=== PATIENT | female | born 1955 | race Two or more races ===

== ENCOUNTER 2025-11-20 00:57 | Inpatient (IN) | payer OTHER, MEDICAID ==
[~2025-11-20] VITALS: Ht 154.9 cm; Wt 49.7 kg
--- NOTE | 2025-11-20 01:40 | ED.PDOC ---
General HPI Comments 70-year-old female, with a history of recurrent kidney stones, presents to the ED with a chief complaint of right flank pain x2 days. Patient reports this pain is similar to her previous kidney stone pain. Patient states the pain is constant, sharp, with no associated relieving factors. Patient reports having a ureteral stent and laser lithotripsy done for kidney stones in the past. Patient has no further complaints at this time and otherwise denies symptoms of dizziness, weakness, dysuria, hematuria, nausea, vomiting. Chief Complaint: Abdominal Pain Time Seen by MD: :33 Reviewed notes: Medications, Allergies Allergies: Coded Allergies: NO KNOWN ALLERGIES (Unverified , 11/20/25) Information Source: Patient, Emergency Med Personnel Mode of Arrival: EMS Severity: Moderate Timing: Days Duration: Since onset associated signs and symptoms: Flank Pain Past Medical History PAST MEDICAL HISTORY: Asthma, Cancer, Kidney Stones Surgical History: Denies all surgeries Social History Smoker: Non-Smoker Alcohol: Denies ETOH Use Drugs: Denies Drug Use Lives In: Home Constitutional: denies: chills, diaphoresis, fatigue, fever, malaise, sweats, weakness, others EENTM: denies: blurred vision, double vision, ear bleeding, ear discharge, ear drainage, ear pain, ear ringing, eye pain, eye redness, hearing loss, mouth pain, mouth swelling, nasal discharge, nose bleeding, nose congestion, nose pain, photophobia, tearing, throat pain, throat swelling, voice changes, others Respiratory: denies: cough, hemoptysis, orthopnea, SOB at rest, shortness of breath, SOB with excertion, stridor, wheezing, others Cardiovascular: denies: chest pain, dizzy spells, diaphoresis, Dyspnea on exertion, edema, irregular heart beat, left arm pain, lightheadedness, palpitations, PND, syncope, others Gastrointestinal: denies: abdomen distended, abdominal pain, blood streaked bowels, constipated, diarrhea, dysphagia, difficulty swallowing, hematemesis, melena, nausea, poor appetite, poor fluid intake, rectal bleeding, rectal pain, vomiting, others Genitourinary: reports: flank pain; denies: abnormal vagina bleeding, burning, dyspareunia, dysuria, frequency, hematuria, incontinence, pain, , vagina discharge, urgency, others Neurological: denies: dizziness, fainting, headache, left sided numbness, left sided weakness, numbness, paresthesia, pre-existing deficit, right sided numbness, right sided weakness, seizure, speech problems, tingling, tremors, weakness, others Musculoskeletal: denies: back pain, gout, joint pain, joint swelling, muscle pain, muscle stiffness, neck pain, others Integumetry: denies: bruises, change in color, change in hair/nails, dryness, laceration, lesions, lumps, rash, wounds, others Allergic/Immunocompromised: denies: Difficulty Healing, Frequent Infections, Hives, Itching, others Hematologic/Lymphatic: denies: anemia, blood clots, easy bleeding, easy bruising, swollen glands, others Endocrine: denies: excessive hunger, excessive sweating, excessive thirst, excessive urination, flushing, intolerance to cold, intolerance to heat, unexplained weight gain, unexplained weight loss, others Psychiatric: denies: anxiety, bipolar disorder, depression, hopeless, panic disorder, schizophrenia, sleepless, suicidal, others All Other Systems: Reviewed and Negative Physical Exam General Appearance: Moderate Distress, Thin HEENT: Normal ENT Inspection, Pharynx Normal, TMs Normal Neck: Full Range of Motion, Non-Tender, Normal, Normal Inspection Respiratory: Chest Non-Tender, Lungs Clear, No Accessory Muscle Use, No Respiratory Distress, Normal Breath Sounds Cardiovascular: No Edema, No JVD, No Murmur, No Gallop, Normal Peripheral Pulses, Regular Rate/Rhythm Breast Exam: Deferred Gastrointestinal: No Organomegaly, Non Tender, No Pulsatile Mass, Normal Bowel Sounds, Soft Genitalia: Deferred Pelvic: Deferred Rectal: Deferred Extremities: No calf tenderness, Normal capillary refill, Normal inspection, Normal range of motion, Non-tender, No pedal edema Musculoskeletal : Apperance: Normal Neurologic: Alert, 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 Was a procedure done?: No Differential Diagnosis Kidney stone (Female): Urolithiasis X-Ray, Labs, Meds, VS Vital Signs Date Time Temp Pulse Resp B/P (MAP) Pulse Ox O2 Delivery O2 Flow Rate FiO2 12/24/25 04:26 74 14 126/63 12/24/25 02:11 96 Room Air* 0 21 11/20/25 02:11 98.1 81 16 143/79 (100) 96 98.1 11/20/25 02:03 81 16 143/79 11/20/25 01:02 98.6 91 18 138/78 100 98.6 Lab Test 11/20/25 01:56 Range/Units White Blood Count 8.2 4.4-10.8 10^3/uL Red Blood Count 3.64 L 4.0-5.20 10^6/uL Hemoglobin 10.8 L 12.2-16.2 g/dL Hematocrit 32.9 L 36.0-46.0 % Mean Corpuscular Volume 90.5 80.0-100.0 fL Mean Corpuscular Hemoglobin 29.6 28.0-32.0 pg Mean Corpuscular Hemoglobin Concent 32.7 32.0-36.0 g/dL Red Cell Distribution Width 14.3 11.8-14.3 % Platelet Count 196 140-450 10^3/uL Mean Platelet Volume 6.8 L 6.9-10.8 fL Neutrophils (%) (Auto) 81.3 H 37.0-80.0 % Lymphocytes (%) (Auto) 11.4 10.0-50.0 % Monocytes (%) (Auto) 6.5 0.0-12.0 % Eosinophils (%) (Auto) 0.4 0.0-7.0 % Basophils (%) (Auto) 0.4 0.0-2.0 % Neutrophils # (Auto) 6.7 1.6-8.6 10 ^3/uL Lymphocytes # (Auto) 0.9 0.4-5.4 10 ^3/uL Monocytes # (Auto) 0.5 0-1.3 10 ^3/uL Eosinophils # (Auto) 0 0-0.8 10 ^3/uL Basophils # (Auto) 0 0-0.2 10 ^3/uL Nucleated Red Blood Cells 0.0 % Sodium Level 139 136-145 mmol/L Potassium Level 4.1 3.5-5.1 mmol/L Chloride Level 105 98-107 mmol/L Carbon Dioxide Level 25 20-31 mmol/L Anion Gap 9 5-15 Blood Urea Nitrogen 15 9-23 mg/dL Creatinine 0.95 0.550-1.02 mg/dL Glomerular Filtration Rate Calc 64 >90 mL/min BUN/Creatinine Ratio 15.8 10.0-20.0 Serum Glucose 111 H 74-106 mg/dL Calcium Level 9.0 8.7-10.4 mg/dL Lipase 31 12-53 U/L Current Medications Medications (Trade) Dose Ordered Sig/Chidi Route Start Time Stop Time Status Last Admin Morphine Sulfate 4 mg ONCE ONCE IV 11/20/25 01:45 11/20/25 01:46 DC 11/20/25 02:03 Ondansetron HCl (Zofran) 4 mg ONCE ONCE IV 11/20/25 01:45 11/20/25 01:46 DC 11/20/25 01:57 [place] [address] Ph: [phone] DIAGNOSTIC IMAGING Diagnostic Imaging Report : [id number] Signed PATIENT: ISA VELEZ ACCT: [id number] UNIT: [id number] : 1955 LOC: ER ROOM / BED: / AGE / SEX: 70 / F ADM STATUS: REG ER SERVICE [id number] ORDERING PHYSICIAN: MANUEL DAUGHERTY PROCEDURE(s): ABPL - CT AB PEL WO CON-NO ORAL OR IV REASON: Rt flank pain ORDER NUMBER(s): [id number], ACCESSION NUMBER(s): [id number] EXAM: CT CT AB PEL WO CON-NO ORAL OR IV History: Rt flank pain Comparison Study: None TECHNIQUE: Multidetector spiral CT of the abdomen was performed from lung bases to pubic symphysis. Imaging was performed without IV contrast. Axial, coronal and sagittal multiplanar reformats were obtained from the axial data set by the technologist. Radiation Dose : 1. Abdomen/Pelvis: CTDIvol 5.1 mGy, DLP 271.69 mGy*cm. FINDINGS: Evaluation of solid organs is limited due to lack of intravenous contrast use. Lung Bases: No acute or significant lung base finding. Mild bibasilar atelectasis. Normal heart size. No pleural or pericardial effusion. Liver: The liver is normal in size. 1.6 cm left hepatic lobe cyst. No focal lesions. Gallbladder and Biliary Tree: Unremarkable Spleen: Unremarkable Pancreas: The pancreas is grossly normal in appearance. Adrenal Glands: Unremarkable Kidneys: Chronic appearing Moderate bilateral hydronephrosis likely related to mechanical obstruction secondary to retroperitoneal masses. Nonobstructing right pelvocaliceal calculi measure up to 3 mm in diameter. 2.3 cm left superior pole renal cortical cyst. Bladder: Grossly unremarkable for degree of distention. Bowel: The stomach is grossly normal in appearance. Retained colorectal stool. Diverticulosis coli without CT evidence of acute diverticulitis. Small bowel and colon are otherwise normal in caliber and distribution. The appendix is normal. Ascites: Absent Lymphadenopathy: Multiple abnormally enlarged mesenteric and retroperitoneal lymph nodes poorly delineated in the absence of intravenous contrast with at least 2 focal estella conglomerate including a right aortocaval mass measuring 5.2 x 4.8 cm and a left common iliac estella conglomerate measuring up to 8.0 x 5.0 cm. Abdominal Wall and Mesentery: Unremarkable. Vasculature: The visualized abdominal aorta is normal in size and caliber. Atherosclerotic vascular calcifications. Evaluation of abdominal and pelvic vessels is limited due to lack of intravenous contrast. Pelvic Organs: Unremarkable status post hysterectomy. Musculoskeletal: No aggressive focal bony lesions, acute fractures or dislocation. IMPRESSION: 1. Mesenteric and retroperitoneal lymphadenopathy with at least 2 focal estella conglomerates as described. Findings are concerning for lymphoma or metastatic disease. 2. Chronic appearing moderate bilateral hydronephrosis likely related to mechanical obstruction secondary to retroperitoneal masses. 3. Nonobstructing right nephrolithiasis. 4. Diverticulosis coli without CT evidence of acute diverticulitis. 5. Retained colorectal stool. Radiation optimization: All CT scans at this facility use at least one of these dose optimization techniques: automated exposure control mA and/or kV adjustment per patient size (includes targeted exams where dose is matched to clinical indication) or iterative reconstruction. Time of 1ST Reevaluation: 02:13 Reevaluation 1ST: Unchanged Patient Education/Counseling: Diagnosis, Treatment, Need For Follow Up Family Education/Counseling: No Family Present SEPSIS Sepsis Screen Date sepsis recognized/suspect: Nov 20, 2025 Time Sepsis recognized/suspect: 0107 Recent Procedure: No On Antibiotic Therapy: No Respiratory Rate >20: No Heart Rate >90: Yes Temp<36 C (96.8 F) or >38.3 C: No SBP <90 or MAP <65 mmHG: No New Acute Mental Status Change: No Is the patient on CPAP, BIPAP,: No Physician Orders Ct Ab Pel Wo Con-No Oral Or Iv (11/20/25 01:41) Urinalysis (11/20/25 01:41) Vital Signs Date Time Temp Pulse Resp B/P (MAP) Pulse Ox O2 Delivery O2 Flow Rate FiO2 11/20/25 04:26 74 14 126/63 11/20/25 02:11 96 Room Air* 0 21 11/20/25 02:11 98.1 81 16 143/79 (100) 96 98.1 11/20/25 02:03 81 16 143/79 11/20/25 01:02 98.6 91 18 138/78 100 98.6 Laboratory Tests Test 11/20/25 01:56 White Blood Count 8.2 10^3/uL (4.4-10.8) Medications Medications Dose Ordered Sig/Chidi Route Start Time Stop Time Status Last Admin Dose Admin Morphine Sulfate 4 mg ONCE ONCE IV 11/20/25 01:45 11/20/25 01:46 DC 11/20/25 02:03 Ondansetron HCl 4 mg ONCE ONCE IV 11/20/25 01:45 11/20/25 01:46 DC 11/20/25 01:57 Critical Care Note Critical Care Time?: No Stability Stability form required: No Heart Score Heart Score: Heart Score Response (Comments) Value History N/A 0 EKG N/A 0 Age N/A 0 Risk Factors N/A 0 Troponin N/A 0 Total 0 I personally scribed for MANUEL DAUGHERTYP ([email or web address]) on 11/20/25 at 01:40. Electronically submitted by Venecia Connell ([employer]). I personally scribed for MANUEL DAUGHERTYP ([email or web address]) on 11/20/25 at 04:53. Electronically submitted by Venecia Connell ([employer]). MANUEL DAUGHERTY Nov 20, 2025 01:40
[2025-11-20] MEDS: ONDANSETRON HCL 4 MG/2 ML VIAL IV ONE ×2 (01:57→16:19)
[2025-11-20] MEDS: MORPHINE SULFATE 4 MG/ML SYR/VIAL IV ONE ×2 (02:03→13:11)
[2025-11-20 02:06] LABS: Hematocrit 32.9 % (36.0-46.0); Hemoglobin 10.8 g/dL (12.2-16.2); Mean Corpuscular Hemoglobin 29.6 pg (28.0-32.0); Mean Corpuscular Volume 90.5 fL (80.0-100.0); Nucleated Red Blood Cells % 0.0 %
[2025-11-20 02:11] VITALS: O2SAT 96
[2025-11-20 02:15] LABS: Calcium 9.0 mg/dL (8.7-10.4); Chloride 105 mmol/L (98-107); Potassium 4.1 mmol/L (3.5-5.1); Sodium 139 mmol/L (136-145)
[2025-11-20 02:16] LABS: Anion Gap 9 (5-15); Carbon Dioxide 25 mmol/L (20-31)
[2025-11-20 02:21] LABS: BUN/Creatinine Ratio 15.8 (10.0-20.0); Blood Urea Nitrogen 15 mg/dL (9-23)
[2025-11-20 02:22] LABS: Glucose 111 mg/dL (74-106); Lipase 31 U/L (12-53)
--- NOTE | 2025-11-20 03:38 | DVH ---
EXAM: CT CT AB PEL WO CON-NO ORAL OR IV History: Rt flank pain Comparison Study: None TECHNIQUE: Multidetector spiral CT of the abdomen was performed from lung bases to pubic symphysis. Imaging was performed without IV contrast. Axial, coronal and sagittal multiplanar reformats were obtained from the axial data set by the technologist. Radiation Dose : 1. Abdomen/Pelvis: CTDIvol 5.1 mGy, DLP 271.69 mGy*cm. FINDINGS: Evaluation of solid organs is limited due to lack of intravenous contrast use. Lung Bases: No acute or significant lung base finding. Mild bibasilar atelectasis. Normal heart size. No pleural or pericardial effusion. Liver: The liver is normal in size. 1.6 cm left hepatic lobe cyst. No focal lesions. Gallbladder and Biliary Tree: Unremarkable Spleen: Unremarkable Pancreas: The pancreas is grossly normal in appearance. Adrenal Glands: Unremarkable Kidneys: Chronic appearing Moderate bilateral hydronephrosis likely related to mechanical obstruction secondary to retroperitoneal masses. Nonobstructing right pelvocaliceal calculi measure up to 3 mm in diameter. 2.3 cm left superior pole renal cortical cyst. Bladder: Grossly unremarkable for degree of distention. Bowel: The stomach is grossly normal in appearance. Retained colorectal stool. Diverticulosis coli without CT evidence of acute diverticulitis. Small bowel and colon are otherwise normal in caliber and distribution. The appendix is normal. Ascites: Absent Lymphadenopathy: Multiple abnormally enlarged mesenteric and retroperitoneal lymph nodes poorly delineated in the absence of intravenous contrast with at least 2 focal estella conglomerate including a right aortocaval mass measuring 5.2 x 4.8 cm and a left common iliac estella conglomerate measuring up to 8.0 x 5.0 cm. Abdominal Wall and Mesentery: Unremarkable. Vasculature: The visualized abdominal aorta is normal in size and caliber. Atherosclerotic vascular calcifications. Evaluation of abdominal and pelvic vessels is limited due to lack of intravenous contrast. Pelvic Organs: Unremarkable status post hysterectomy. Musculoskeletal: No aggressive focal bony lesions, acute fractures or dislocation. IMPRESSION: 1. Mesenteric and retroperitoneal lymphadenopathy with at least 2 focal estella conglomerates as described. Findings are concerning for lymphoma or metastatic disease. 2. Chronic appearing moderate bilateral hydronephrosis likely related to mechanical obstruction secondary to retroperitoneal masses. 3. Nonobstructing right nephrolithiasis. 4. Diverticulosis coli without CT evidence of acute diverticulitis. 5. Retained colorectal stool. Radiation optimization: All CT scans at this facility use at least one of these dose optimization techniques: automated exposure control mA and/or kV adjustment per patient size (includes targeted exams where dose is matched to clinical indication) or iterative reconstruction.
[2025-11-20 05:53] LABS: Urine Protein, UAD TRACE (Negative)
[2025-11-20] MEDS: KETOROLAC TROMETH 30 MG/ML 1ML VIAL IV ONE (06:35)
[2025-11-20 08:15] VITALS: PULSE 73; RESP 18; O2SAT 95
[2025-11-20 13:40] VITALS: PULSE 19; RESP 19; O2SAT 94
[2025-11-20] MEDS ORDERED: MORPHINE SULFATE 4 MG/ML SYR/VIAL IV PRN (17:45)
[2025-11-20] MEDS ORDERED: ACETAMINOPHEN 325 MG TAB PO PRN (17:45)
[2025-11-20] MEDS ORDERED: NITROGLYCERIN 0.4 MG SL TAB SL PRN (17:45)
--- NOTE | 2025-11-20 17:49 | DVHHPRES ---
History of Present Illness Resident Creating Document: PETEJOVANNY FITZGERALD RESIDENT History of Present Illness Dorys is a 70 Y O F presents with right flank pain for 2 days that she describes as feeling like a relapse of kidney stones. The pain has been progressively worsening associated nausea and vomiting, stating that every time she tries to eat, she throws it up. She also describes feeling fullness in the affected area and reports some unspecified weight loss. Dorys has a significant oncologic history, having been diagnosed with ovarian cancer in 2019 and undergoing surgery. She required a second surgery in 2020 to "finish it off." She mentions that tumors were found underneath her left rib and on her right side that were not initially detected. Due to insurance changes, she has had to find new doctors and is currently working to establish care with a primary doctor who can refer her to oncology. She states she has not been following up with an oncologist recently due to these transitions in care. Medical History - Cancer diagnosed in 2019 - History of chemotherapy treatment with poor tolerance and significant weight loss - Asthma, Surgical History - Cancer surgery in 2019 - Follow-up cancer surgery in 2019 to complete the initial procedure Medications and Supplements - Chemotherapy - Previously received for cancer treatment. Discontinued due to poor tolerance and significant adverse effects including weight loss. Social History - Living Situation: Lives with son and baby girl - Family Structure: Has a son and granddaughter Review of Systems General: Positive for weight loss, decreased appetite. Gastrointestinal: Positive for nausea and vomiting, abdominal fullness. Review of Systems Allergies: Coded Allergies: NO KNOWN ALLERGIES (Unverified , 11/20/25) Medications Current Medications Medications Dose Ordered Sig/Chidi Route Start Time Stop Time Status Last Admin Dose Admin Sodium Chloride 10 ml Q8HR IV 11/20/25 22:00 UNV Sodium Chloride 1,000 ml @ 60 mls/hr [id number] IV 11/20/25 17:45 UNV Ondansetron HCl 4 mg Q4HP PRN IV 11/20/25 17:45 UNV Enoxaparin Sodium 40 mg DAILY SC 11/21/25 10:00 UNV Acetaminophen 650 mg Q6HP PRN PO 11/20/25 17:45 UNV Nitroglycerin 0.4 mg Q5MINP PRN SL 11/20/25 17:45 UNV Morphine Sulfate 2 mg Q30M PRN IV 11/20/25 17:45 UNV Acetaminophen/ Hydrocodone Bitart 1 tab Q4HP PRN PO 11/20/25 17:45 UNV Ceftriaxone Sodium 50 ml @ 100 mls/hr DAILY@09 IV 11/21/25 09:00 UNV Tamsulosin HCl 0.4 mg QPM PO 11/20/25 18:00 UNV Exam Vital Signs Vital Signs Date Time Temp Pulse Resp B/P (MAP) Pulse Ox O2 Delivery O2 Flow Rate FiO2 11/20/25 16:00 99.0 77 21 131/65 (87) 95 99.0 11/20/25 13:40 Room Air* 0 21 Exam Pt is lying on bed General Appearance: Alert, Oriented X3, Cooperative, Not in acute distress HEENT: Atraumatic, Mucous membranes moist/pink Respiratory: Clear to auscultation, Normal air movement, No added sounds Cardiovascular: Regular rate, Normal S1, Normal S2, No murmurs Abdominal: Active bowel sounds, Soft, no distention, no tenderness : Right flank tenderness Extremities: No edema, Normal pulses, No tenderness/swelling Skin: No Significant rash, except past surgical scars Neuro: Normal speech, sensorimotor deficits none Psych/Mental Status: Mental status NL, Mood NL Nurse was there as importer exporter during examination Labs/Xrays Labs Test 11/20/25 05:20 11/20/25 01:56 Range/Units Urine Color Colorless Yellow Urine Clarity Turbid H Clear Urine pH 5.5 5.0-9.0 Urine Specific Media 1.021 1.001-1.035 Urine Protein Trace H Negative Urine Ketones 2+ H Negative Urine Blood 3+ H Negative /uL Urine Nitrite Negative Negative Urine Bilirubin Negative Negative Urine Urobilinogen Normal Negative mg/dL Urine Leukocyte Esterase 2+ Negative /uL Urine RBC 912 0 - 4 /hpf Urine Microscopic WBC 174 H 0-5 /HPF Urine Squamous Epithelial Cells Few <5 /hpf Urine Bacteria Many H None Seen /hpf Urine Mucus Few None Seen Urine Glucose Normal Normal mg/dL White Blood Count 8.2 4.4-10.8 10^3/uL Red Blood Count 3.64 L 4.0-5.20 10^6/uL Hemoglobin 10.8 L 12.2-16.2 g/dL Hematocrit 32.9 L 36.0-46.0 % Mean Corpuscular Volume 90.5 80.0-100.0 fL Mean Corpuscular Hemoglobin 29.6 28.0-32.0 pg Mean Corpuscular Hemoglobin Concent 32.7 32.0-36.0 g/dL Red Cell Distribution Width 14.3 11.8-14.3 % Platelet Count 196 140-450 10^3/uL Mean Platelet Volume 6.8 L 6.9-10.8 fL Neutrophils (%) (Auto) 81.3 H 37.0-80.0 % Lymphocytes (%) (Auto) 11.4 10.0-50.0 % Monocytes (%) (Auto) 6.5 0.0-12.0 % Eosinophils (%) (Auto) 0.4 0.0-7.0 % Basophils (%) (Auto) 0.4 0.0-2.0 % Neutrophils # (Auto) 6.7 1.6-8.6 10 ^3/uL Lymphocytes # (Auto) 0.9 0.4-5.4 10 ^3/uL Monocytes # (Auto) 0.5 0-1.3 10 ^3/uL Eosinophils # (Auto) 0 0-0.8 10 ^3/uL Basophils # (Auto) 0 0-0.2 10 ^3/uL Nucleated Red Blood Cells 0.0 % Sodium Level 139 136-145 mmol/L Potassium Level 4.1 3.5-5.1 mmol/L Chloride Level 105 98-107 mmol/L Carbon Dioxide Level 25 20-31 mmol/L Anion Gap 9 5-15 Blood Urea Nitrogen 15 9-23 mg/dL Creatinine 0.95 0.550-1.02 mg/dL Glomerular Filtration Rate Calc 64 >90 mL/min BUN/Creatinine Ratio 15.8 10.0-20.0 Serum Glucose 111 H 74-106 mg/dL Calcium Level 9.0 8.7-10.4 mg/dL Lipase 31 12-53 U/L SEPSIS Sepsis Screen Date sepsis recognized/suspect: Nov 20, 2025 Time Sepsis recognized/suspect: 1340 Recent Procedure: No On Antibiotic Therapy: No Respiratory Rate >20: No Heart Rate >90: Yes Temp<36 C (96.8 F) or >38.3 C: No SBP <90 or MAP <65 mmHG: No New Acute Mental Status Change: No Is the patient on CPAP, BIPAP,: No Physician Orders Admit (11/20/25 17:34) Allergies (11/20/25 17:34) Code Status (11/20/25 17:34) 2 Gm Sodium Diet (11/20/25 Dinner) Sodium Chloride Lock (Saline Lock Ns) (11/20/25 22:00) Sodium Chloride 0.9% (11/20/25 17:45) Oxygen Per Hour (11/20/25 17:34) Ondansetron Hcl (Zofran) (11/20/25 17:45) Enoxaparin Sodium (Lovenox) (11/21/25 10:00) Complete Blood Count (11/21/25 04:00) Comprehensive Metabolic Panel (11/21/25 04:00) Condition: Fair (11/20/25 17:34) Acetaminophen Tablet (Tylenol Tablet) (11/20/25 17:45) Nitroglycerin Sublingual (Ntrostat Subli (11/20/25 17:45) Morphine Sulfate Injection (11/20/25 17:45) Oxygen By Nasal Cannula (11/20/25 17:34) Stat Ekg For Chest Pain (11/20/25 17:34) Notify Md Of Changes From Base (11/20/25 17:34) Acquisition Professional For 24 Hours (11/20/25 17:34) Emergency Dysrhythmia Protocol (11/20/25 17:34) Rhythm Strips Once Every Shift (11/20/25 17:34) Urine Bacterial Culture (11/20/25 17:34) B-Type Natriuretic Peptide (11/20/25 17:34) Thyroid Stimulating Hormone (11/20/25 17:34) Lactic Acid W/ Reflex Order (11/20/25 17:34) PTPTT (11/20/25 17:34) Magnesium (11/20/25 17:34) Hepatic Panel (11/20/25 17:34) C-Reactive Protein (11/20/25 17:34) Hydrocodone-Acet 7.5/325mg Tab (Charlotte 7. (11/20/25 17:45) Ceftriaxone 1gm/50ml (Rocephin) (11/21/25 09:00) [address] QSHIFT (11/20/25 17:34) Tamsulosin Hydrochloride (Flomax) (11/20/25 18:00) Vital Signs Date Time Temp Pulse Resp B/P (MAP) Pulse Ox O2 Delivery O2 Flow Rate FiO2 11/20/25 16:00 99.0 77 21 131/65 (87) 95 99.0 11/20/25 15:00 78 15 128/68 (88) 95 11/20/25 14:00 94 17 130/78 (95) 94 11/20/25 13:40 19 19 94 Room Air* 0 21 11/20/25 13:40 94 19 131/81 11/20/25 13:40 99.3 94 19 131/81 (98) 94 99.3 11/20/25 13:11 89 20 140/79 11/20/25 12:00 77 20 121/60 (80) 95 11/20/25 10:00 82 14 91/56 (68) 99 11/20/25 10:00 76 17 140/65 (90) 93 Medications Medications Dose Ordered Sig/Chidi Route Start Time Stop Time Status Last Admin Dose Admin Ceftriaxone Sodium 50 ml @ 100 mls/hr ONCE ONCE IV 11/20/25 15:00 11/20/25 15:29 DC 11/20/25 15:21 100 MLS/HR Ketorolac Tromethamine 15 mg ONCE ONCE IV 11/20/25 06:30 11/20/25 06:31 DC 11/20/25 06:35 15 MG Morphine Sulfate 1 mg ONCE ONCE IV 11/20/25 13:15 11/20/25 13:16 DC 11/20/25 13:11 1 MG Ondansetron HCl 4 mg ONCE ONCE IV 11/20/25 16:00 11/20/25 16:01 DC 11/20/25 16:19 4 MG Assessment/Plan Assessment/Plan Lorena presents with 2 days of right flank pain concerning for kidney stone recurrence, with associated nausea, vomiting, and weight loss in the setting of known cancer history. Acute pyelonephritis Acute complicated UTI B/L hydronephrosis likely related to mechanical obstruction secondary to re troperitoneal masses Nonobstructing right nephrolithiasis Plan: - Treat urinary tract infection with IV rocephin - Urine cultures - Sytmptomatic management - tamsulosin - IV fluids Cancer history with possible recurrence Possible metastasis Plan: - Urgent follow-up on outpatient with oncologist as soon as possible GI PPX: Protonix VTE ppx: Lovenox Diet: cardiac Goals of care addressed with the patient for more than 27 minutes: Full code status Case discussed with Dr. Durand , patient and nurse Plan discussed with: Patient My Orders Orders - JOVANNY FREEMAN RESIDENT Procedure Category Date Status Time Admit ADMIT 11/20/25 Transmitted 17:34 Allergies MAGUI 11/20/25 In Process 17:34 Code Status CODE 11/20/25 Transmitted 17:34 2 Gm Sodium Diet DIET 11/20/25 Transmitted Dinner Sodium Chloride Lock PHA 11/20/25 Logged (Saline Lock Ns) 22:00 Sodium Chloride 0.9% PHA 11/20/25 Logged 17:45 Oxygen Per Hour RT 11/20/25 Transmitted 17:34 Ondansetron Hcl PHA 11/20/25 Logged (Zofran) 17:45 Enoxaparin Sodium PHA 11/21/25 Logged (Lovenox) 10:00 Complete Blood Count LAB 11/21/25 Verified 04:00 Comprehensive LAB 11/21/25 Verified Metabolic Panel 04:00 Condition: Fair [facility] 11/20/25 In Process 17:34 Acetaminophen Tablet PHA 11/20/25 Logged (Tylenol Tablet) 17:45 Nitroglycerin PHA 11/20/25 Logged Sublingual (Ntrostat 17:45 Morphine Sulfate PHA 11/20/25 Logged Injection 17:45 Oxygen By Nasal RT 11/20/25 Transmitted Cannula 17:34 Stat Ekg For Chest [facility] 11/20/25 In Process Pain 17:34 Notify Of Changes [facility] 11/20/25 In Process From Base 17:34 Acquisition Professional For [facility] 11/20/25 In Process 24 Hours 17:34 Emergency Dysrhythmia [facility] 11/20/25 In Process Protocol 17:34 Rhythm Strips Once [facility] 11/20/25 In Process Every Shift 17:34 Urine Bacterial JONEL 11/20/25 Logged Culture 17:34 B-Type Natriuretic LAB 11/20/25 Logged Peptide 17:34 Thyroid Stimulating LAB 11/20/25 Logged Hormone 17:34 Lactic Acid W/ Reflex LAB 11/20/25 Logged Order 17:34 PTPTT LAB 11/20/25 Logged 17:34 Magnesium LAB 11/20/25 Logged 17:34 Hepatic Panel LAB 11/20/25 Logged 17:34 C-Reactive Protein LAB 11/20/25 Logged 17:34 Hydrocodone-Acet PHA 11/20/25 Logged 7.5/325mg Tab ([place] 17:45 Ceftriaxone 1gm/50ml PHA 11/21/25 Logged (Rocephin) 09:[address] MAGUI 11/20/25 In Process 17:34 Tamsulosin PHA 11/20/25 Logged Hydrochloride (Flomax) 18:00 Visit Coding STANDARD RES Billing Provider: ASHUTOSH DURAND MD Date of Service if different f: Nov 20, 2025 Common Visit Codes: [id number] INP/OBS CARE (HIGH) Secondary Visit Codes: 70640-[id number] CARE PLAN 30 MINUTES JOVANNY FREEMAN RESIDENT Nov 20, 2025 17:49
[2025-11-20 18:16] LABS: Alanine Aminotransferase 17.0 U/L (7-40); Albumin 3.9 g/dL (3.2-4.8); Alkaline Phosphatase 93.0 U/L (46-116); Bilirubin, Direct 0.2 mg/dL (<0.3); Magnesium 1.7 mg/dL (1.6-2.6); Total Protein 7.1 g/dL (5.7-8.2)
[2025-11-20 18:17] LABS: Bilirubin, Total 0.5 mg/dL (0.2-1.0); INR 1.01 (0.9-1.15); Partial Thromboplastin Time 25.4 SEC (24.5-34.5); Prothrombin Time 10.7 sec (9.3-11.8)
[2025-11-20] MEDS: SODIUM CHLORIDE 0.9% 1,000 ML IV SCH (18:25)
[2025-11-20] MEDS: TAMSULOSIN HYDROCHLORIDE 0.4 MG CAP PO SCH (18:27)
[2025-11-20] MEDS: HYDROcodone-ACET 7.5/325MG TAB PO PRN (20:04)
[2025-11-20] MEDS: SODIUM CHLOR 0.9% PF (SALINE LOCK) 10ML VIAL/SYR IV SCH (21:45)
[2025-11-20 22:23] VITALS: O2SAT 95
[2025-11-20 22:24] VITALS: BP 104/65; PULSE 79; RESP 16; TEMP 97.8; O2SAT 95
[2025-11-20] MEDS ORDERED: TRAM50TA2 PO (23:25)
[2025-11-20] MEDS ORDERED: NAPR-505 PO (23:25)
[2025-11-21] VITALS (7 sets, daily range): BP systolic 96–112; BP diastolic 54–69; PULSE 82–102; RESP 16–19; TEMP 97.5–98.6; O2SAT 93–99
[2025-11-21 06:58] LABS: Hematocrit 30.2 % (36.0-46.0); Hemoglobin 9.8 g/dL (12.2-16.2); Mean Corpuscular Hemoglobin 29.9 pg (28.0-32.0); Mean Corpuscular Volume 92.4 fL (80.0-100.0); Nucleated Red Blood Cells % 0.1 %
[2025-11-21 07:18] LABS: Alanine Aminotransferase 15 U/L (7-40); Albumin 3.5 g/dL (3.2-4.8); Alkaline Phosphatase 82 U/L (46-116); Anion Gap 8 (5-15); BUN/Creatinine Ratio 12.6 (10.0-20.0); Bilirubin, Total 0.5 mg/dL (0.2-1.0); Blood Urea Nitrogen 14 mg/dL (9-23); Carbon Dioxide 25 mmol/L (20-31); Glucose 83 mg/dL (74-106); Potassium 4.2 mmol/L (3.5-5.1); Sodium 140 mmol/L (136-145); Total Protein 6.4 g/dL (5.7-8.2)
[2025-11-21 07:29] LABS: Calcium 8.6 mg/dL (8.7-10.4); Chloride 107 mmol/L (98-107)
[2025-11-21 08:32] LABS: Opiate Scree,Urine Pos (NEGATIVE)
[2025-11-21] MEDS: ENOXAPARIN SOD 30 MG/0.3 ML SYRINGE SC SCH (08:36)
[2025-11-21 08:41] LABS: Amphetamine Screen, Urine Neg (NEGATIVE); Barbiturate Scree,Urine Neg (NEGATIVE); Benzodiazephine Screen, Urine Neg (NEGATIVE); Cannabinoid Screen, Urine Neg (NEGATIVE); Cocaine Screen, Urine Neg (NEGATIVE); Phencyclidine Screen, Urine Neg (NEGATIVE)
[2025-11-21 09:18] LABS: Iron 30.0 ug/dL (50-170); Total Iron Binding Capacity 199.0 ug/dL (250-425)
--- NOTE | 2025-11-21 09:25 | DVHPNRES ---
Progress Note Date Seen: Nov 21, 2025 Resident Creating Document: NICHOLE HAYWOOD RESIDENT Medical Necessity Reason Pt with a Central, PICC or Fol: No Subjective Review of Systems Patient is 70 years old female with a history of ovarian carcinoma, status post surgical intervention, status post chemotherapy last chemotherapy was April last chemotherapy was in April 2025, history of asthma, history of kidney stone came with a complaint of pain. As per patient he has been having right flank pain for last 2 days, gradual in onset, constant, 10/10, no aggravating or relieving factor. Pain was associated nausea and some watery vomiting, no blood. Patient denied any fever, diarrhea, acute joint redness or swelling. Patient was diagnosed with ovarian cancer in 2019 and undergoing surgery. She required a second surgery in 2020 to "finish it off." She mentions that tumors were found underneath her left rib and on her right side that were not initially detected. As per patient doctor told her that she had metastasis on PET scan. She used to live [place]. She lab workup revealed mild anemia with a hemoglobin 10.8, iron 30, ferritin 336. Use positive for opiates. CT abdomen and pelvis revealed- Mesenteric and retroperitoneal lymphadenopathy with at least 2 focal estella conglomerates as described. Findings are concerning for lymphoma or metastatic disease. Chronic appearing moderate bilateral hydronephrosis likely related to mechanical obstruction secondary to retroperitoneal masses. Nonobstructing right nephrolithiasis. Diverticulosis coli without CT evidence of acute diverticulitis. Retained colorectal stool. PMH-ovarian carcinoma, status post surgical intervention, status post chemotherapy, history of asthma, history of kidney stone PSH- - Cancer surgery in 2019, Follow-up cancer surgery in 2019 to complete the initial procedure Allergy- lives with son, Personal History/ Social History- denies smoking/alcoholism/drug abuse. lives with son, ROS Cardiovascular- deny acute chest pain or shortness of breath or cough or palpitation Respiratory denies cough or short of breath or wheezing Musculoskeletal-denies acute joint swelling or tenderness or redness Neurological- denies acute dysarthria, dysphagia, change in vision Psychiatry- denies depression or SI or HI Skin- denies acute rash or purpura Patient was seen today at bedside Labs and chart reviewed Ordered blood culture Pending urine culture On IV antibiotic ZOSYN Ordered ultrasound of the kidney Ordered ultrasound of the bilateral lower extremity to rule out DVT as patient has a history of cancer Ordered urology consultation for further evaluation and care, urology recommended for IR consult for evaluation if patient suitable for nephrostomy tube Plan is to discuss about hospice choice Objective vital signs Vital Sign Date Time Temp Pulse Resp B/P (MAP) Pulse Ox O2 Delivery O2 Flow Rate FiO2 11/21/25 05:00 97.5 83 16 112/63 (79) 96 97.5 11/20/25 22:23 Room Air* 0 21 Total Intake and Output 11/20/25 11/20/25 11/21/25 15:00 23:00 07:00 Intake Total 110 ml 0 ml Output Total 300 ml Balance -190 ml 0 ml medications Current Medications Medications Dose Ordered Sig/Chidi Route Start Time Stop Time Status Last Admin Dose Admin Sodium Chloride 10 ml Q8HR IV 11/20/25 22:00 11/21/25 05:05 10 ML Sodium Chloride 1,000 ml @ 60 mls/hr [id number] IV 11/20/25 17:45 11/21/25 09:06 60 MLS/HR Ondansetron HCl 4 mg Q4HP PRN IV 11/20/25 17:45 Enoxaparin Sodium 30 mg DAILY SC 11/21/25 10:00 11/21/25 08:36 30 MG Acetaminophen 650 mg Q6HP PRN PO 11/20/25 17:45 Nitroglycerin 0.4 mg Q5MINP PRN SL 11/20/25 17:45 Morphine Sulfate 2 mg Q30M PRN IV 11/20/25 17:45 Acetaminophen/ Hydrocodone Bitart 1 tab Q4HP PRN PO 11/20/25 17:45 11/21/25 08:32 1 TAB Ceftriaxone Sodium 50 ml @ 100 mls/hr DAILY@09 IV 11/21/25 09:00 11/21/25 08:54 100 MLS/HR Tamsulosin HCl 0.4 mg QPM PO 11/20/25 18:00 11/20/25 18:27 0.4 MG Examination General examination- HEENT- PEERLA, no acute nasal discharge Cardiovascular- S1-S2 audible, rate and rhythm regular, no murmur Respiratory- CTAB, no wheeze or rhonchi Gastrointestinal-nontender, bowel sound+. Nondistended Musculoskeletal-no acute joint swelling or tenderness or redness Lower extremity- Neurological- cranial nerves intact, no acute dysarthria or dysphagia Psychiatry- denies depression or SI or HI Skin- no acute rash or purpura laboratory and microbiology Laboratory Tests 11/21/25 05:38 Test 11/21/25 05:38 Range/Units Serum Glucose 83 74-106 mg/dL Labs and/or images reviewed: Labs reviewed by me, Image(s) reviewed by me Problem List/Assessment/Plan Problem List/Assessment/Plan Assessment and plan #Suspected sepsis likely due acute complicated UTI - ECOLI # bilateral hydronephrosis likely due to mechanical obstruction/likely mets # nephrolithiasis -pending blood culture Pending urine culture -continue IV antibiotic -continue IV fluid Ordered urology consult for further evaluation and care-spoke to [facility] -urology recommended for IR consult for evaluation if patient suitable for nephrostomy tube # history of ovarian cancer, status post surgical intervention, status post chemotherapy # abdominal lymphadenopathy likely metastasis of ovarian cancer -patient was advised to follow up with the oncologist/PCP as outpatient Plan is discussed about hospice care # history of asthma, no exacerbation -nebulization PRN # anemia of chronic disease -monitor CBC Ordered a stool for occult blood test # diverticulosis -avoid dehydration and constipation Goals of care, Code status full code ; discussed with >15 minutes PUD prophylaxis: Pantoprazole DVT prophylaxis: Lovenox Plan discussed with Dr. Welch , nursing staff, Total time spent on patient evaluation, chart review, assessment and plan, discussion discussion >35 minutes Plan discussed with: Patient, Other (RN) My Orders My Orders Orders - NICHOLE HAYWOOD Procedure Category Date Status Time Iron Panel LAB 11/21/25 In Process 08:07 Ferritin LAB 11/21/25 In Process 08:07 Blood Culture JONEL 11/21/25 Logged 09:06 Visit Coding STANDARD RES Billing Provider: EDGAR BARROW MD Date of Service if different f: Nov 21, 2025 Common Visit Codes: [id number] INP/OBS CARE(HIGH) NICHOLE HAYWOOD RESIDENT Nov 21, 2025 09:25 RAMONA ROSADO RESIDENT Nov 22, 2025 16:52
--- NOTE | 2025-11-21 11:17 | DVH ---
CLINICAL HISTORY: Rule out DVT TECHNIQUE: Color and duplex doppler imagine of the bilateral lower extremity veins was performed. Vessel compression and augmentation if possible was also performed. COMPARISON: None FINDINGS: Right Lower Extremity: Right common femoral vein: Normal compressibility and flow. Right superficial femoral vein: Normal compressibility and flow. Right popliteal vein: Normal compressibility and flow. Left Lower Extremity: Left common femoral vein: Normal compressibility and flow. Left superficial femoral vein: Normal compressibility and flow. Left popliteal vein: Normal compressibility and flow. IMPRESSION: NO SONOGRAPHIC EVIDENCE FOR DEEP VENOUS THROMBOSIS IN THE BILATERAL LOWER EXTREMITY VEINS.
--- NOTE | 2025-11-21 11:49 | DVH ---
CLINICAL HISTORY: eval for ureteral obstruction and any compressing mass TECHNIQUE: Sonographic imaging of the bladder was performed. COMPARISON: None FINDINGS: The bladder is partially contracted, measuring 2.3 x 6.4 x 4.6 cm for volume of 42 mL. There is 7 mm bladder wall thickness. There is a 5 mm intraluminal echogenic structure. There are solid appearing lesions adjacent to the bladder superiorly. IMPRESSION: 7 mm bladder wall thickness, most likely related to underdistention. 7 mm linear echogenic structure within the bladder, which could represent a stone. Complex masslike lesion superior to the bladder. Please refer to CT report performed yesterday for better details.
[2025-11-21] MEDS: LACTULOSE 20Gm/30ML SOLN PO SCH (12:50)
[2025-11-21] MEDS: PIPERACILLIN-TAZOB 3.375GM 100 ML IV SCH (12:51)
[2025-11-21] MEDS: ONDANSETRON HCL 4 MG/2 ML VIAL IV PRN (21:37)
[2025-11-22] VITALS (7 sets, daily range): BP systolic 90–114; BP diastolic 53–65; PULSE 73–96; RESP 16–18; TEMP 97.9–98.5; O2SAT 91–98
[2025-11-22 07:37] LABS: Anion Gap 10 (5-15); Carbon Dioxide 26 mmol/L (20-31); Chloride 105 mmol/L (98-107); Potassium 3.8 mmol/L (3.5-5.1); Sodium 141 mmol/L (136-145)
[2025-11-22 07:41] LABS: Calcium 8.5 mg/dL (8.7-10.4)
[2025-11-22 07:42] LABS: Hematocrit 26.5 % (36.0-46.0); Hemoglobin 8.7 g/dL (12.2-16.2); Mean Corpuscular Hemoglobin 29.8 pg (28.0-32.0); Mean Corpuscular Volume 90.8 fL (80.0-100.0); Nucleated Red Blood Cells % 0.1 %
[2025-11-22 07:43] LABS: Glucose 82 mg/dL (74-106)
[2025-11-22 07:44] LABS: BUN/Creatinine Ratio 12.1 (10.0-20.0); Blood Urea Nitrogen 15 mg/dL (9-23); Magnesium 1.8 mg/dL (1.6-2.6)
--- NOTE | 2025-11-22 10:22 | DVH ---
US KIDNEY HISTORY: evaulate for hydronephrosis, check for uretheral jets COMPARISON: US BLADDER on DOS: 11/21/25 TECHNIQUE: Transverse and longitudinal grayscale and color doppler images were obtained of the kidneys and bladder. FINDINGS: Right kidney: Size: 9.3 cm Cortical thickness: Normal Echogenicity: Normal Stones: None Masses: None Hydronephrosis: Yes Ureters: Not well visualized. Other: None Left kidney: Size: 12.0 cm Cortical thickness: Normal Echogenicity: Normal Stones: None Masses: None Hydronephrosis: Yes Ureters: Not well visualized. Other: None Bladder: Contracted Other: None. IMPRESSION: Bilateral hydronephrosis, Left> right. Ureteral jets not visualized bilaterally.
--- NOTE | 2025-11-22 12:42 | DVHPNRES ---
Progress Note Date Seen: Nov 22, 2025 Resident Creating Document: NICHOLE HAYWOOD RESIDENT Medical Necessity Reason Pt with a Central, PICC or Fol: No Subjective Review of Systems Patient is 70 years old female with a history of ovarian carcinoma, status post surgical intervention, status post chemotherapy last chemotherapy was April last chemotherapy was in April 2025, history of asthma, history of kidney stone came with a complaint of pain. As per patient he has been having right flank pain for last 2 days, gradual in onset, constant, 10/10, no aggravating or relieving factor. Pain was associated nausea and some watery vomiting, no blood. Patient denied any fever, diarrhea, acute joint redness or swelling. Patient was diagnosed with ovarian cancer in 2019 and undergoing surgery. She required a second surgery in 2019 to "finish it off." She mentions that tumors were found underneath her left rib and on her right side that were not initially detected. As per patient doctor told her that she had metastasis on PET scan. She used to live [place]. She lab workup revealed mild anemia with a hemoglobin 10.8, iron 30, ferritin 336. Use positive for opiates. CT abdomen and pelvis revealed- Mesenteric and retroperitoneal lymphadenopathy with at least 2 focal estella conglomerates as described. Findings are concerning for lymphoma or metastatic disease. Chronic appearing moderate bilateral hydronephrosis likely related to mechanical obstruction secondary to retroperitoneal masses. Nonobstructing right nephrolithiasis. Diverticulosis coli without CT evidence of acute diverticulitis. Retained colorectal stool. PMH-ovarian carcinoma, status post surgical intervention, status post chemotherapy, history of asthma, history of kidney stone PSH- - Cancer surgery in 2019, Follow-up cancer surgery in 2019 to complete the initial procedure Allergy- lives with son, Personal History/ Social History- denies smoking/alcoholism/drug abuse. lives with son, ROS Cardiovascular- deny acute chest pain or shortness of breath or cough or palpitation Respiratory denies cough or short of breath or wheezing Musculoskeletal-denies acute joint swelling or tenderness or redness Neurological- denies acute dysarthria, dysphagia, change in vision Psychiatry- denies depression or SI or HI Skin- denies acute rash or purpura Patient was seen today at bedside Labs and chart reviewed Blood culture no growth so far Urine culture E coli sensitive to ceftriaxone, discontinued Zosyn, ordered ceftriaxone Patient is seen by Urology, recommended - IR consult for bilateral PCN placement. CT-guided biopsy of the retroperitoneal mass. Cystoscopy TBA on outpatient basis.. Radiology consult in place for possible bilateral nephrostomy Radiology ordered for kidney ultrasound which revealed-Bilateral hydronephrosis, Left> right. Ureteral jets not visualized bilaterally. Patient was kept NPO for possible bilateral nephrostomy today But as per radiology possible bilateral nephrostomy tube placement on Tuesday Objective vital signs Vital Sign Date Time Temp Pulse Resp B/P (MAP) Pulse Ox O2 Delivery O2 Flow Rate FiO2 11/22/25 08:40 98.5 85 16 91/54 (66) 95 98.5 11/22/25 08:15 Room Air* 0 21 Total Intake and Output 11/21/25 11/21/25 11/22/25 15:00 23:00 07:00 Intake Total 1180 ml 700 ml Balance 1180 ml 700 ml medications Current Medications Medications Dose Ordered Sig/Chidi Route Start Time Stop Time Status Last Admin Dose Admin Sodium Chloride 10 ml Q8HR IV 11/20/25 22:00 11/22/25 08:32 10 ML Sodium Chloride 1,000 ml @ 60 mls/hr [id number] IV 11/20/25 17:45 11/21/25 09:06 60 MLS/HR Ondansetron HCl 4 mg Q4HP PRN IV 11/20/25 17:45 11/22/25 08:32 4 MG Enoxaparin Sodium 30 mg DAILY SC 11/21/25 10:00 11/22/25 08:57 30 MG Acetaminophen 650 mg Q6HP PRN PO 11/20/25 17:45 Nitroglycerin 0.4 mg Q5MINP PRN SL 11/20/25 17:45 Morphine Sulfate 2 mg Q30M PRN IV 11/20/25 17:45 Acetaminophen/ Hydrocodone Bitart 1 tab Q4HP PRN PO 11/20/25 17:45 11/22/25 10:54 1 TAB Tamsulosin HCl 0.4 mg QPM PO 11/20/25 18:00 11/21/25 16:56 0.4 MG Ceftriaxone Sodium 50 ml @ 100 mls/hr DAILY@09 IV 11/22/25 08:15 11/22/25 08:31 100 MLS/HR Lactulose 30 ml DAILY PRN PO 11/22/25 08:45 Examination General examination-awake, alert HEENT- PEERLA, no acute nasal discharge Cardiovascular- S1-S2 audible, rate and rhythm regular, no murmur Respiratory- CTAB, no wheeze or rhonchi Gastrointestinal-nontender, bowel sound+. Nondistended Musculoskeletal-no acute joint swelling or tenderness or redness Lower extremity- no leg edema Neurological- cranial nerves intact, no acute dysarthria or dysphagia Psychiatry- denies depression or SI or HI Skin- no acute rash or purpura laboratory and microbiology Laboratory Tests 11/22/25 05:29 Test 11/22/25 05:29 Range/Units Serum Glucose 82 74-106 mg/dL Microbiology Date/Time Source Procedure Growth Status 11/21/25 09:49 Blood Blood Culture - Preliminary NO GROWTH AFTER 24 HOURS OF INCUBATION. Resulted 11/20/25 05:20 Voided Urine Urine Culture - Final Escherichia coli Complete Problem List/Assessment/Plan Problem List/Assessment/Plan Assessment and plan-patient with a history of ovarian cancer with metastasis, S/P surgical intervention, S/P chemotherapy came acute complicated UTI with bilateral hydronephrosis likely due to mechanical obstruction. Urology recommended for IR consult for bilateral PCN placement and CT-guided biopsy of the retroperitoneal mass. Cystoscopy TBA on outpatient basis. Interventional Radiology saw this patient, ordered ultrasonogram of kidney. But as per radiology bilateral nephrostomy tube placement on Tuesday. Urine culture positive for E coli, discontinued Zosyn, ordered ceftriaxone. # sepsis likely due acute complicated UTI # bilateral hydronephrosis likely due to mechanical obstruction # nephrolithiasis -blood culture- no growth so far - urine culture- E. Coli -continue IV antibiotic Ceftriaxone -Urology recommended for IR consult for bilateral PCN placement and CT-guided biopsy of the retroperitoneal mass. Cystoscopy TBA on outpatient basis. -as per radiology bilateral nephrostomy tube placement on Tuesday # history of ovarian cancer, status post surgical intervention, status post chemotherapy # abdominal lymphadenopathy likely metastasis of ovarian cancer -patient was advised to follow up with the oncologist/PCP as outpatient # history of asthma, no exacerbation -nebulization PRN # anemia of chronic disease -monitor CBC Ordered a stool for occult blood test # diverticulosis -avoid dehydration and constipation Goals of care, Code status full code ; discussed with >15 minutes PUD prophylaxis: Pantoprazole DVT prophylaxis: Lovenox Plan discussed with Dr. Welch , nursing staff, Total time spent on patient evaluation, chart review, assessment and plan, discussion discussion >35 minutes Plan discussed with: Patient, Other My Orders My Orders Orders - NICHOLE HAYWOOD Procedure Category Date Status Time Strict I & O MAGUI 11/21/25 In Process 12:45 Ceftriaxone 1gm/50ml PHA 11/22/25 In Process (Rocephin) 08:15 Lactulose Oral PHA 11/22/25 In Process 08:45 Visit Coding STANDARD RES Billing Provider: EDGAR BARROW MD Date of Service if different f: Nov 22, 2025 Common Visit Codes: 51012-IJEFYMEYKH INP/OBS CARE(HIGH) NICHOLE HAYWOOD Nov 22, 2025 12:42
--- NOTE | 2025-11-22 14:47 | DVHINCON2 ---
Date of service: Nov 22, 2025 Referring Physician Hospitalist Reason for Consultation bilateral hydro History of Present Illness History Source: Patient, RN Notes, MD Notes Exam Limitations: No limitations HPI 70 yo female with hx of ovarian cancer s/p hysterectomy 2019 who presented with righ flank pain x 2 days. Urine culture positive for E Coli and is mckeon sensitiv e. Renal function demonstrated acute kidney injury with creatinine rising from 1.1 to 1.2 unknown baseline. Renal US demonstrated bilateral hydro left >right ureteral jets not seen. CT A/P revealed moderate bilateral hydro secondary to extrinsic compression from bulky retroperitoneal and mesenteric lymphadenopathy including a right aortocaval estella mass 5.2 x 4.8 cm and left common iliac estella conglomerate measuring up to 8 cm concerning for malignancy. Urology consulted for management of obstructive uropathy in the setting of infection and ELIANA. Home Meds Reported Medications Tramadol Hcl (Tramadol Hcl) 50 Mg Tab, 50 MG PO Q12HP PRN for PAIN SCALE 7 THRU 10, MG 11/20/25 Naproxen Sodium (Aleve) 220 Mg Tab, 220 MG PO Q4HPRN for PAIN, TAB 11/20/25 Past Medical History Hemotology/Oncology: Cancer Patient Family History: Alzheimer's disease G8 MOTHER Asthma G8 MOTHER Colon cancer G8 FATHER Diabetes mellitus 19 CHILD Epilepsy G8 SISTER Suicide G8 FATHER Review of Systems Gastrointestinal: Abdominal Pain Genitourinary: Pain H&P Exam Vital Signs Vital Signs Date Time Temp Pulse Resp B/P (MAP) Pulse Ox O2 Delivery O2 Flow Rate FiO2 11/22/25 08:40 98.5 85 16 91/54 (66) 95 98.5 11/22/25 08:15 Room Air* 0 21 Labs/Xrays [place] [address] Ph: [phone] DIAGNOSTIC IMAGING Diagnostic Imaging Report : [id number] Signed PATIENT: ISA VELEZ ACCT: [id number] UNIT: [id number] : 1955 LOC: ER ROOM / BED: / AGE / SEX: 70 / F ADM STATUS: REG ER SERVICE 0141 ORDERING PHYSICIAN: MANUEL DAUGHERTY PROCEDURE(s): ABPL - CT AB PEL WO CON-NO ORAL OR IV REASON: Rt flank pain ORDER NUMBER(s): [id number], ACCESSION NUMBER(s): [id number] EXAM: CT CT AB PEL WO CON-NO ORAL OR IV History: Rt flank pain Comparison Study: None TECHNIQUE: Multidetector spiral CT of the abdomen was performed from lung bases to pubic symphysis. Imaging was performed without IV contrast. Axial, coronal and sagittal multiplanar reformats were obtained from the axial data set by the technologist. Radiation Dose : 1. Abdomen/Pelvis: CTDIvol 5.1 mGy, DLP 271.69 mGy*cm. FINDINGS: Evaluation of solid organs is limited due to lack of intravenous contrast use. Lung Bases: No acute or significant lung base finding. Mild bibasilar atelectasis. Normal heart size. No pleural or pericardial effusion. Liver: The liver is normal in size. 1.6 cm left hepatic lobe cyst. No focal lesions. Gallbladder and Biliary Tree: Unremarkable Spleen: Unremarkable Pancreas: The pancreas is grossly normal in appearance. Adrenal Glands: Unremarkable Kidneys: Chronic appearing Moderate bilateral hydronephrosis likely related to mechanical obstruction secondary to retroperitoneal masses. Nonobstructing right pelvocaliceal calculi measure up to 3 mm in diameter. 2.3 cm left superior pole renal cortical cyst. Bladder: Grossly unremarkable for degree of distention. Bowel: The stomach is grossly normal in appearance. Retained colorectal stool. Diverticulosis coli without CT evidence of acute diverticulitis. Small bowel and colon are otherwise normal in caliber and distribution. The appendix is normal. Ascites: Absent Lymphadenopathy: Multiple abnormally enlarged mesenteric and retroperitoneal lymph nodes poorly delineated in the absence of intravenous contrast with at least 2 focal estella conglomerate including a right aortocaval mass measuring 5.2 x 4.8 cm and a left common iliac estella conglomerate measuring up to 8.0 x 5.0 cm. Abdominal Wall and Mesentery: Unremarkable. Vasculature: The visualized abdominal aorta is normal in size and caliber. Atherosclerotic vascular calcifications. Evaluation of abdominal and pelvic vessels is limited due to lack of intravenous contrast. Pelvic Organs: Unremarkable status post hysterectomy. Musculoskeletal: No aggressive focal bony lesions, acute fractures or dislocation. IMPRESSION: 1. Mesenteric and retroperitoneal lymphadenopathy with at least 2 focal estella conglomerates as described. Findings are concerning for lymphoma or metastatic disease. 2. Chronic appearing moderate bilateral hydronephrosis likely related to mechanical obstruction secondary to retroperitoneal masses. 3. Nonobstructing right nephrolithiasis. 4. Diverticulosis coli without CT evidence of acute diverticulitis. 5. Retained colorectal stool. Radiation optimization: All CT scans at this facility use at least one of these dose optimization techniques: automated exposure control mA and/or kV adjustment per patient size (includes targeted exams where dose is matched to clinical indication) or iterative reconstruction. ATED BY: NIKHIL MEDINA MD DICTATED DATE/TIME: 11/20/25334 SIGNED BY: NIKHIL MEDINA MD SIGNED DATE/TIME: 11/20/25334 CC: [place] [address] Ph: [phone] DIAGNOSTIC IMAGING Diagnostic Imaging Report : [id number] Signed PATIENT: ISA VELEZ ACCT: [id number] UNIT: [id number] : 1955 LOC: [facility] ROOM / BED: [facility] A AGE / SEX: 70 / F ADM STATUS: ADM IN SERVICE 2 ORDERING PHYSICIAN: ION AGUIRER MD PROCEDURE(s): KIDUS - KIDNEY REASON: evaulate for hydronephrosis, check for uretheral jets ORDER NUMBER(s): [id number], ACCESSION NUMBER(s): [id number] US KIDNEY HISTORY: evaulate for hydronephrosis, check for uretheral jets COMPARISON: US BLADDER on DOS: 11/21/25 TECHNIQUE: Transverse and longitudinal grayscale and color doppler images were obtained of the kidneys and bladder. FINDINGS: Right kidney: Size: 9.3 cm Cortical thickness: Normal Echogenicity: Normal Stones: None Masses: None Hydronephrosis: Yes Ureters: Not well visualized. Other: None Left kidney: Size: 12.0 cm Cortical thickness: Normal Echogenicity: Normal Stones: None Masses: None Hydronephrosis: Yes Ureters: Not well visualized. Other: None Bladder: Contracted Other: None. IMPRESSION: Bilateral hydronephrosis, Left> right. Ureteral jets not visualized bilaterally. ATED BY: ION AGUIRRE MD DICTATED DATE/TIME: 11/22/25 1020 SIGNED BY: ION AGUIRRE MD SIGNED DATE/TIME: 11/22/25 1020 CC: Labs Test 11/22/25 05:29 11/21/25 20:35 11/21/25 05:38 11/20/25 17:48 Range/Units White Blood Count 5.7 # 4.4-10.8 10^3/uL Red Blood Count 2.92 L 4.0-5.20 10^6/uL Hemoglobin 8.7 L 12.2-16.2 g/dL Hematocrit 26.5 #L 36.0-46.0 % Mean Corpuscular Volume 90.8 80.0-100.0 fL Mean Corpuscular Hemoglobin 29.8 28.0-32.0 pg Mean Corpuscular Hemoglobin Concent 32.8 32.0-36.0 g/dL Red Cell Distribution Width 14.4 H 11.8-14.3 % Platelet Count 158 140-450 10^3/uL Mean Platelet Volume 7.3 6.9-10.8 fL Neutrophils (%) (Auto) 72.7 37.0-80.0 % Lymphocytes (%) (Auto) 17.6 10.0-50.0 % Monocytes (%) (Auto) 7.8 0.0-12.0 % Eosinophils (%) (Auto) 1.4 0.0-7.0 % Basophils (%) (Auto) 0.5 0.0-2.0 % Neutrophils # (Auto) 4.1 1.6-8.6 10 ^3/uL Lymphocytes # (Auto) 1.0 0.4-5.4 10 ^3/uL Monocytes # (Auto) 0.4 0-1.3 10 ^3/uL Eosinophils # (Auto) 0.1 0-0.8 10 ^3/uL Basophils # (Auto) 0 0-0.2 10 ^3/uL Nucleated Red Blood Cells 0.1 % Sodium Level 141 136-145 mmol/L Potassium Level 3.8 3.5-5.1 mmol/L Chloride Level 105 98-107 mmol/L Carbon Dioxide Level 26 20-31 mmol/L Anion Gap 10 5-15 Blood Urea Nitrogen 15 9-23 mg/dL Creatinine 1.24 H 0.550-1.02 mg/dL Glomerular Filtration Rate Calc 47 >90 mL/min BUN/Creatinine Ratio 12.1 10.0-20.0 Serum Glucose 82 74-106 mg/dL Calcium Level 8.5 L 8.7-10.4 mg/dL Magnesium Level 1.8 1.6-2.6 mg/dL Stool Occult Blood Negative Negative Stool Occult Blood Sample #3 Negative Reticulocyte Count (auto) 2.66 H 0.5-1.5 % Hemoglobin A1c < 3.8 <5.7 % A1C Iron Level 30 L 50-170 ug/dL Total Iron Binding Capacity 199 L 250-425 ug/dL Percent Iron Saturation 15.1 15-50 % Ferritin 336.5 H 10-291 ng/mL Total Bilirubin 0.5 0.2-1.0 mg/dL Aspartate Amino Transferase (AST) 30 13-40 U/L Alanine Aminotransferase (ALT) 15 7-40 U/L Alkaline Phosphatase 82 46-116 U/L Total Protein 6.4 5.7-8.2 g/dL Albumin 3.5 3.2-4.8 g/dL Prothrombin Time 10.7 9.3-11.8 sec Prothrombin Time INR 1.01 0.9-1.15 Activated Partial Thromboplast Time 25.4 24.5-34.5 SEC Lactic Acid Level 1.0 0.4-2.0 mmol/L Direct Bilirubin 0.2 <0.3 mg/dL C-Reactive Protein High Sensitivity 7.43 H <1.0 mg/dL B-Type Natriuretic Peptide 89.65 0-100 pg/mL Thyroid Stimulating Hormone (TSH) 1.44 0.55-4.78 uIU/mL Test 11/20/25 05:20 11/20/25 01:56 Range/Units Urine Color Colorless Yellow Urine Clarity Turbid H Clear Urine pH 5.5 5.0-9.0 Urine Specific [place] 1.021 1.001-1.035 Urine Protein Trace H Negative Urine Ketones 2+ H Negative Urine Blood 3+ H Negative /uL Urine Nitrite Negative Negative Urine Bilirubin Negative Negative Urine Urobilinogen Normal Negative mg/dL Urine Leukocyte Esterase 2+ Negative /uL Urine RBC 912 0 - 4 /hpf Urine Microscopic WBC 174 H 0-5 /HPF Urine Squamous Epithelial Cells Few <5 /hpf Urine Bacteria Many H None Seen /hpf Urine Mucus Few None Seen Urine Glucose Normal Normal mg/dL Urine Opiates Screen Pos NEGATIVE Urine Fentanyl Screen Neg NEGATIVE Urine Barbiturates Screen Neg NEGATIVE Urine Phencyclidine Screen Neg NEGATIVE Urine Amphetamines Screen Neg NEGATIVE Urine Benzodiazepines Screen Neg NEGATIVE Urine Cocaine Screen Neg NEGATIVE Urine Cannabinoids Screen Neg NEGATIVE Lipase 31 12-53 U/L Microbiology Date/Time Source Procedure Growth Status 11/21/25 09:49 Blood Blood Culture - Preliminary NO GROWTH AFTER 24 HOURS OF INCUBATION. Resulted 11/20/25 05:20 Voided Urine Urine Culture - Final Escherichia coli Complete Assessment/Plan Problem List: (1) Hydronephrosis (2) History of ovarian cancer Plan consult IR for bilateral PCN placement CT guided biopsy of retroperitoneal mass cystoscopy TBA on outpt basis Plan discussed with: Patient, Other PITO SAEED NP Nov 22, 2025 14:47
--- NOTE | 2025-11-22 21:10 | DVH ---
CHEST RADIOGRAPH Indication: SCHEDULED SURGERY 11/25 Technique: Single frontal view of the chest was obtained COMPARISON: None FINDINGS: Lines and Tubes: Right chest port in satisfactory position. Lungs: Clear Pleura: No effusion.No pneumothorax. Cardiomediastinal contours: Cardiomegaly. Bones: Unremarkable IMPRESSION: No acute cardiopulmonary disease.
[2025-11-23] VITALS (8 sets, daily range): BP systolic 91–117; BP diastolic 52–68; PULSE 79–95; RESP 16–18; TEMP 97.9–99.7; O2SAT 91–94
[2025-11-23 06:33] LABS: Hematocrit 27.4 % (36.0-46.0); Hemoglobin 8.9 g/dL (12.2-16.2); Mean Corpuscular Hemoglobin 29.9 pg (28.0-32.0); Mean Corpuscular Volume 92.2 fL (80.0-100.0); Nucleated Red Blood Cells % 0.0 %
[2025-11-23 06:39] LABS: Anion Gap 9 (5-15); Carbon Dioxide 27 mmol/L (20-31); Potassium 4.1 mmol/L (3.5-5.1); Sodium 143 mmol/L (136-145)
[2025-11-23 06:41] LABS: Calcium 8.5 mg/dL (8.7-10.4); Chloride 107 mmol/L (98-107)
[2025-11-23 06:44] LABS: Glucose 77 mg/dL (74-106)
[2025-11-23 06:45] LABS: BUN/Creatinine Ratio 9.9 (10.0-20.0); Blood Urea Nitrogen 13 mg/dL (9-23); Magnesium 1.8 mg/dL (1.6-2.6)
[2025-11-23] MEDS: LACTULOSE 20Gm/30ML SOLN PO PRN (11:44)
--- NOTE | 2025-11-23 19:30 | DVHPNRES ---
Progress Note Date Seen: Nov 23, 2025 Resident Creating Document: SUKUMAR MARX RESIDENT Medical Necessity Reason Pt with a Central, PICC or Fol: No Subjective Review of Systems PHI: Dorys Mora is 70 years old female with a history of ovarian carcinoma, status post surgical intervention, status post chemotherapy last chemotherapy was April last chemotherapy was in April 2025, history of asthma, history of kidney stone came with a complaint of pain. As per patient he has been having right flank pain for last 2 days, gradual in onset, constant, 10/10, no aggravating or relieving factor. Pain was associated nausea and some watery vomiting, no blood. Patient denied any fever, diarrhea, acute joint redness or swelling. Patient was diagnosed with ovarian cancer in 2019 and undergoing surgery. She required a second surgery in 2019 to "finish it off." She mentions that tumors were found underneath her left rib and on her right side that were not initially detected. As per patient doctor told her that she had metastasis on PET scan. She used to live [place]. She lab workup revealed mild anemia with a hemoglobin 10.8, iron 30, ferritin 336. Use positive for opiates. CT abdomen and pelvis revealed-Mesenteric and retroperitoneal lymphadenopathy with at least 2 focal estella conglomerates as described. Findings are concerning for lymphoma or metastatic disease. Chronic appearing moderate bilateral hydronephrosis likely related to mechanical obstruction secondary to retroperitoneal masses. Nonobstructing right nephrolithiasis. Diverticulosis coli without CT evidence of acute diverticulitis. Retained colorectal stool. PMH-ovarian carcinoma, status post surgical intervention, status post chemotherapy, history of asthma, history of kidney stone PSH- - Cancer surgery in 2019, Follow-up cancer surgery in 2019 to complete the initial procedure Allergy- lives with son, Personal History/ Social History- denies smoking/alcoholism/drug abuse. lives with son, Hospital course: On 11/22/25, the patient was examined and evaluated at the ER lobby. The patient's VS, labs and chart was reviewed. The patient complains right flank pain 3/10, improved with analgesia. Urology team is on board, they recommended bilateral nephrostomy tube placement. IR was consulted, they will perform bilateral neprostomy tube on Tuesday11/25/25. The patient continues receiving IV antibiotics Ceftriaxone and also tamsulosin. No new complaints today. We will continue following up the progress of this patient closely. ROS Cardiovascular- deny acute chest pain or shortness of breath or cough or palpitation Respiratory denies cough or short of breath or wheezing Musculoskeletal-denies acute joint swelling or tenderness or redness Neurological- denies acute dysarthria, dysphagia, change in vision Psychiatry- denies depression or SI or HI Skin- denies acute rash or purpura Objective vital signs Vital Sign Date Time Temp Pulse Resp B/P (MAP) Pulse Ox O2 Delivery O2 Flow Rate FiO2 11/23/25 17:00 99.7 94 16 92/52 (65) 93 99.7 11/23/25 08:00 Room Air* 0 21 Total Intake and Output 11/22/25 11/22/25 11/23/25 15:00 23:00 07:00 Intake Total 530 ml 240 ml 550 ml Output Total 370 ml 425 ml Balance 530 ml -130 ml 125 ml medications Current Medications Medications Dose Ordered Sig/Chidi Route Start Time Stop Time Status Last Admin Dose Admin Sodium Chloride 10 ml Q8HR IV 11/20/25 22:00 11/23/25 11:24 10 ML Ondansetron HCl 4 mg Q4HP PRN IV 11/20/25 17:45 11/23/25 18:50 4 MG Enoxaparin Sodium 30 mg DAILY SC 11/21/25 10:00 11/23/25 08:10 30 MG Acetaminophen 650 mg Q6HP PRN PO 11/20/25 17:45 Nitroglycerin 0.4 mg Q5MINP PRN SL 11/20/25 17:45 Morphine Sulfate 2 mg Q30M PRN IV 11/20/25 17:45 Acetaminophen/ Hydrocodone Bitart 1 tab Q4HP PRN PO 11/20/25 17:45 11/23/25 17:16 1 TAB Tamsulosin HCl 0.4 mg QPM PO 11/20/25 18:00 11/23/25 17:06 0.4 MG Ceftriaxone Sodium 50 ml @ 100 mls/hr DAILY@09 IV 11/22/25 08:15 11/23/25 08:10 100 MLS/HR Lactulose 30 ml DAILY PRN PO 11/22/25 08:45 11/23/25 11:44 30 ML Examination General Appearance: Alert, Oriented X3, Cooperative, No acute distress HEENT: Atraumatic, PERRLA, EOMI, Mucous membr. moist/pink Respiratory: Normal air movement Cardiovascular: Regular rate, Normal S1, Normal S2, No murmurs, no chest pain on palpation of the chest. Abdominal: Costovertebral angle positive on the right side. Normal bowel sounds, Soft, No tenderness, No hepatospenomegaly, No masses Extremities: No clubbing, No cyanosis, No edema, Normal pulses, No tenderness/swelling Skin: No breakdown, No significant lesion Neuro: Normal gait, Normal speech, Strength at 5/5 X4 ext, Normal tone, Sensation intact, Cranial nerves 3-12 NL, Reflexes 2+ Psych/Mental Status: Mental status NL, Mood NL laboratory and microbiology Laboratory Tests 11/23/25 04:56 Test 11/23/25 04:56 Range/Units Serum Glucose 77 74-106 mg/dL Microbiology Date/Time Source Procedure Growth Status 11/21/25 09:49 Blood Blood Culture - Preliminary NO GROWTH AFTER 48 HOURS OF INCUBATION. Resulted 11/20/25 05:20 Voided Urine Urine Culture - Final Escherichia coli Complete Problem List/Assessment/Plan Problem List/Assessment/Plan #Sepsis likely due acute complicated UTI #Bilateral hydronephrosis likely due to mechanical obstruction #Nephrolithiasis -blood culture- no growth so far - urine culture- E. Coli -continue IV antibiotic Ceftriaxone -Urology recommended for IR consult for bilateral PCN placement and CT-guided biopsy of the retroperitoneal mass. Cystoscopy TBA on outpatient basis. -as per radiology bilateral nephrostomy tube placement on Tuesday11/25/25 # history of ovarian cancer, status post surgical intervention, status post chemotherapy # abdominal lymphadenopathy likely metastasis of ovarian cancer -patient was advised to follow up with the oncologist/PCP as outpatient #history of asthma, no exacerbation -nebulization PRN #Anemia of chronic disease -monitor CBC Ordered a stool for occult blood test #Chronic Diverticular disease. -avoid dehydration and constipation DVT prophylaxis : Lovenox GI prophylaxis Protonix Code status: full code [facility]: Poli Patient's status and plan discussed with the patient >30min. Case discussed with Plan discussed with: Patient My Orders My Orders Orders - SUKUMAR MARX RESIDENT Procedure Category Date Status Time Complete Blood Count LAB 11/24/25 Verified 04:00 Basic Metabolic Panel LAB 11/24/25 Verified 04:00 Visit Coding STANDARD RES Billing Provider: FERNANDA GIANG MD Date of Service if different f: Nov 23, 2025 Common Visit Codes: [id number] INP/OBS CARE(HIGH) SUKUMAR MARX RESIDENT Nov 23, 2025 19:30 FERNANDA GIANG MD Nov 27, 2025 14:19
[2025-11-24 01:00] VITALS: BP 96/50; PULSE 91; RESP 17; TEMP 98.2; O2SAT 91
[2025-11-24 05:00] VITALS: BP 105/59; PULSE 100; RESP 18; TEMP 98.5; O2SAT 95
[2025-11-24 06:12] LABS: Hematocrit 28.4 % (36.0-46.0); Hemoglobin 9.4 g/dL (12.2-16.2); Mean Corpuscular Hemoglobin 30.1 pg (28.0-32.0); Mean Corpuscular Volume 91.3 fL (80.0-100.0); Nucleated Red Blood Cells % 0.0 %
[2025-11-24 06:20] LABS: Chloride 103 mmol/L (98-107); Potassium 4.1 mmol/L (3.5-5.1); Sodium 139 mmol/L (136-145)
[2025-11-24 06:21] LABS: Anion Gap 9 (5-15); Carbon Dioxide 27 mmol/L (20-31)
[2025-11-24 06:23] LABS: Calcium 8.7 mg/dL (8.7-10.4)
[2025-11-24 06:26] LABS: BUN/Creatinine Ratio 11.9 (10.0-20.0); Blood Urea Nitrogen 14 mg/dL (9-23); Glucose 105 mg/dL (74-106)
[2025-11-24 09:00] VITALS: BP 94/53; PULSE 103; RESP 16; TEMP 99; O2SAT 91
[2025-11-24] MEDS ORDERED: LORazepam 2MG/ML-1ML VIAL IV PRN (12:00)
[2025-11-24 13:00] VITALS: BP 93/62; PULSE 78; RESP 16; TEMP 98.6; O2SAT 93
[2025-11-24] MEDS: HYDROmorphone HCL 2 MG/ML VL/or syr IV PRN (13:01)
[2025-11-24] MEDS: HYDROcodone-ACET 7.5/325MG TAB PO PRN (15:39)
--- NOTE | 2025-11-24 16:19 | DVHPNRES ---
Progress Note Date Seen: Nov 24, 2025 Resident Creating Document: NICHOLE HAYWOOD RESIDENT Medical Necessity Reason Pt with a Central, PICC or Fol: No Subjective Review of Systems Patient is 70 years old female with a history of ovarian carcinoma, status post surgical intervention, status post chemotherapy last chemotherapy was April last chemotherapy was in April 2025, history of asthma, history of kidney stone came with a complaint of pain. As per patient he has been having right flank pain for last 2 days, gradual in onset, constant, 10/10, no aggravating or relieving factor. Pain was associated nausea and some watery vomiting, no blood. Patient denied any fever, diarrhea, acute joint redness or swelling. Patient was diagnosed with ovarian cancer in 2019 and undergoing surgery. She required a second surgery in 2020 to "finish it off." She mentions that tumors were found underneath her left rib and on her right side that were not initially detected. As per patient doctor told her that she had metastasis on PET scan. She used to live [place]. She lab workup revealed mild anemia with a hemoglobin 10.8, iron 30, ferritin 336. Use positive for opiates. CT abdomen and pelvis revealed- Mesenteric and retroperitoneal lymphadenopathy with at least 2 focal estella conglomerates as described. Findings are concerning for lymphoma or metastatic disease. Chronic appearing moderate bilateral hydronephrosis likely related to mechanical obstruction secondary to retroperitoneal masses. Nonobstructing right nephrolithiasis. Diverticulosis coli without CT evidence of acute diverticulitis. Retained colorectal stool. PMH-ovarian carcinoma, status post surgical intervention, status post chemotherapy, history of asthma, history of kidney stone PSH- - Cancer surgery in 2019, Follow-up cancer surgery in 2019 to complete the initial procedure Allergy- lives with son, Personal History/ Social History- denies smoking/alcoholism/drug abuse. lives with son, ROS Cardiovascular- deny acute chest pain or shortness of breath or cough or palpitation Respiratory denies cough or short of breath or wheezing Musculoskeletal-denies acute joint swelling or tenderness or redness Neurological- denies acute dysarthria, dysphagia, change in vision Psychiatry- denies depression or SI or HI Skin- denies acute rash or purpura Patient was seen today at bedside Labs and chart reviewed Blood culture no growth so far Urine culture E coli sensitive to ceftriaxone Radiology ordered for kidney ultrasound which revealed-Bilateral hydronephrosis, Left> right. Ureteral jets not visualized bilaterally. Patient needs to keep NPO after midnight for possible bilateral nephrostomy tube placement tomorrow on Tuesday by intervention Radiology Objective vital signs Vital Sign Date Time Temp Pulse Resp B/P (MAP) Pulse Ox O2 Delivery O2 Flow Rate FiO2 11/24/25 13:31 89 13 110/68 11/24/25 13:00 98.6 93 98.6 11/24/25 08:30 Room Air* 0 21 Total Intake and Output 11/23/25 11/23/25 11/24/25 15:00 23:00 07:00 Intake Total 50 ml 875 ml 550 ml Output Total 250 ml 300 ml Balance 50 ml 625 ml 250 ml medications Current Medications Medications Dose Ordered Sig/Chidi Route Start Time Stop Time Status Last Admin Dose Admin Sodium Chloride 10 ml Q8HR IV 11/20/25 22:00 11/24/25 04:24 10 ML Ondansetron HCl 4 mg Q4HP PRN IV 11/20/25 17:45 11/24/25 13:00 4 MG Enoxaparin Sodium 30 mg DAILY SC 11/21/25 10:00 11/24/25 11:06 30 MG Acetaminophen 650 mg Q6HP PRN PO 11/20/25 17:45 Nitroglycerin 0.4 mg Q5MINP PRN SL 11/20/25 17:45 Morphine Sulfate 2 mg Q30M PRN IV 11/20/25 17:45 Tamsulosin HCl 0.4 mg QPM PO 11/20/25 18:00 11/23/25 17:06 0.4 MG Ceftriaxone Sodium 50 ml @ 100 mls/hr DAILY@09 IV 11/22/25 08:15 11/24/25 10:00 100 MLS/HR Lactulose 30 ml DAILY PRN PO 11/22/25 08:45 11/23/25 11:44 30 ML Hydromorphone HCl 0.25 mg Q4HPRN PRN IV 11/24/25 12:00 11/24/25 13:01 0.25 MG Lorazepam 0.25 mg Q12HP PRN IV 11/24/25 12:00 Acetaminophen/ Hydrocodone Bitart 1 tab Q4HP PRN PO 11/24/25 12:15 11/24/25 15:39 1 TAB Examination General examination-awake, alert HEENT- PEERLA, no acute nasal discharge Cardiovascular- S1-S2 audible, rate and rhythm regular, no murmur Respiratory- CTAB, no wheeze or rhonchi Gastrointestinal-nontender, bowel sound+. Nondistended Musculoskeletal-no acute joint swelling or tenderness or redness Lower extremity- no leg edema Neurological- cranial nerves intact, no acute dysarthria or dysphagia Psychiatry- denies depression or SI or HI Skin- no acute rash or purpura laboratory and microbiology Laboratory Tests 11/24/25 05:57 Test 11/24/25 05:57 Range/Units Serum Glucose 105 74-106 mg/dL Microbiology Date/Time Source Procedure Growth Status 11/21/25 09:49 Blood Blood Culture - Preliminary NO GROWTH AFTER 72 HOURS OF INCUBATION. Resulted 11/20/25 05:20 Voided Urine Urine Culture - Final Escherichia coli Complete Problem List/Assessment/Plan Problem List/Assessment/Plan Assessment and plan-patient with a history of ovarian cancer with metastasis, S/P surgical intervention, S/P chemotherapy came acute complicated UTI with bilateral hydronephrosis likely due to mechanical obstruction. Urology recommended for IR consult for bilateral PCN placement and CT-guided biopsy of the retroperitoneal mass. Cystoscopy TBA on outpatient basis. Interventional Radiology saw this patient, ordered ultrasonogram of kidney. But as per radiology bilateral nephrostomy tube placement on Tuesday. Urine culture positive for E coli, discontinued Zosyn, ordered ceftriaxone. # sepsis likely due acute complicated UTI # bilateral hydronephrosis likely due to mechanical obstruction # nephrolithiasis -blood culture- no growth so far - urine culture- E. Coli -continue IV antibiotic Ceftriaxone -Urology recommended for IR consult for bilateral PCN placement and CT-guided biopsy of the retroperitoneal mass. Cystoscopy TBA on outpatient basis. -as per radiology bilateral nephrostomy tube placement on Tuesday # history of ovarian cancer, status post surgical intervention, status post chemotherapy # abdominal lymphadenopathy likely metastasis of ovarian cancer -patient was advised to follow up with the oncologist/PCP as outpatient # history of asthma, no exacerbation -nebulization PRN # anemia of chronic disease -monitor CBC Ordered a stool for occult blood test # diverticulosis -avoid dehydration and constipation Goals of care, Code status full code ; discussed with >15 minutes PUD prophylaxis: Pantoprazole DVT prophylaxis: Lovenox Plan discussed with Dr. Welch , nursing staff, Total time spent on patient evaluation, chart review, assessment and plan, discussion discussion >35 minutes Plan discussed with: Patient, Other (RN) My Orders My Orders Orders - NICHOLE HAYWOOD Procedure Category Date Status Time Hydromorphone PHA 11/24/25 In Process Injection (Dilaudid 12:00 Lorazepam 2mg/Ml Inj PHA 11/24/25 In Process (Ativan Inj) 12:00 Visit Coding STANDARD RES Billing Provider: EDGAR BARROW MD Date of Service if different f: Nov 24, 2025 Common Visit Codes: [id number] INP/OBS CARE(HIGH) NICHOLE HAYWOOD Nov 24, 2025 16:19
[2025-11-24 17:00] VITALS: BP 99/64; PULSE 84; RESP 16; TEMP 99.5; O2SAT 94
[2025-11-24 21:00] VITALS: BP 100/53; PULSE 87; RESP 18; TEMP 98; O2SAT 92
[2025-11-25] VITALS (12 sets, daily range): BP systolic 93–114; BP diastolic 53–71; PULSE 71–91; RESP 14–18; TEMP 97.6–98.6; O2SAT 91–99
[2025-11-25 07:04] LABS: INR 1.76 (0.9-1.15); Partial Thromboplastin Time 28.5 SEC (24.5-34.5); Prothrombin Time 17.6 sec (9.3-11.8)
--- NOTE | 2025-11-25 07:40 | ECG ---
[facility] Test Date: 2025-11-25 Test Time: 05:33:58 Pat Name: ISA VELEZ Department: Room: 0291 A Gender: F Janitor Head: CARLEEN : 1955 Requested By: NICHOLE HAYWOOD Order Number: [id number] Reading MD: Adarsh Ding Measurements Intervals [place] Rate: 78 P: 65 KS: 112 QRS: 25 QRSD: 78 T: 21 QT: 376 QTc: 429 Interpretive Statements Sinus rhythm Atrial premature complexes Borderline short [place] interval Consider RVH or posterior infarct Electronically Signed On 11-28-2025 16:11:29 PST by Adarsh Ding Please click the below link to view image of tracing.
[2025-11-25] MEDS: KETOROLAC TROMETH 30 MG/ML 1ML VIAL IV ONE (09:58)
[2025-11-25] MEDS: IODIXANOL 320MG/ML 100ML BTL IV ONE (10:30)
[2025-11-25] MEDS: MIDAZOLAM HCL 2MG/2ML 2ml VIAL (1mg/ml) ONE (10:30)
[2025-11-25] MEDS: LIDOCAINE 2%HCL (LOCAL ANESTH.) INJ 20ML MDV ONE (10:30)
[2025-11-25] MEDS: fentaNYL CITRATE 100 MCG/2 ML VL ONE (10:30)
[2025-11-25] MEDS: HYDROmorphone HCL 2 MG/ML VL/or syr IV ONE (11:35)
--- NOTE | 2025-11-25 12:12 | DVH ---
XY PERCUTANEOUS NEPHROSTOMY, HISTORY: Bilateral nephrostomy tube placement due to hydronephrosis from an obstructing mass. PROCEDURE: Informed consent was obtained. The patient was placed on the fluoroscopic table in a prone position and IV sedation administered. The right/left flank was prepped with chlorhexidine which was allowed to dry and draped in the usual sterile fashion. Time out was performed. and the soft tissues infiltrated with 1% lidocaine local anesthetic. Utilizing ultrasound guidance, a 21 gauge Accu Stick needle was advanced from a posterolateral approach into a left side lower pole calyx, and a small amount of contrast was injected under fluoroscopy to confirm positioning. Over a mandril wire, exchange was made to a non-vascular access set, through which was advanced an 0.035 wire. Following serial dilation, an 8.5 Angolan multipurpose nephrostomy catheter was placed with tip pigtailed within the renal pelvis. Position was confirmed with antegrade nephrostogram. The catheter was secured in place and connected to gravity drainage. Utilizing ultrasound guidance, a 21 gauge Accu Stick needle was advanced from a posterolateral approach into a right side lower pole calyx, and a small amount of contrast was injected under fluoroscopy to confirm positioning. Over a mandril wire, exchange was made to a non-vascular access set, through which was advanced an 0.035 wire. Following serial dilation, an 8.5 Angolan multipurpose nephrostomy catheter was placed with tip pigtailed within the renal pelvis. Position was confirmed with antegrade nephrostogram. The catheter was secured in place and connected to gravity drainage. A sterile dressing was applied. No immediate complication was identified. DAP 57 FLUOROSCOPY TIME: 2.3 minutes. CONTRAST USED: 20 mL Omni 300. SEDATION: Dr. Mahamed Aguirre was personally responsible for the administration of moderate sedation during the procedure performed, including the use of an independent trained observer who had no other duties during the procedure. The drugs utilized were IV fentanyl and versed (see nursing log for details). The total time of supervision by the attending physician was approximately 40 minutes. FINDINGS: Moderately dilated left > right renal collecting system with contrast obstructing in the distal ureter. New 8.5 jordanian nephrostomy tube via a posterior lower pole calyceal access, with loop coiled within the renal pelvis. IMPRESSION: Moderately dilated left > right renal collecting system with contrast obstructing in the distal ureter, status post placement of 8.5 jordanian bilateral percutaneous nephrostomy catheter. PLAN: Routine catheter care.
--- NOTE | 2025-11-25 12:12 | DVH ---
XY PERCUTANEOUS NEPHROSTOMY, HISTORY: Bilateral nephrostomy tube placement due to hydronephrosis from an obstructing mass. PROCEDURE: Informed consent was obtained. The patient was placed on the fluoroscopic table in a prone position and IV sedation administered. The right/left flank was prepped with chlorhexidine which was allowed to dry and draped in the usual sterile fashion. Time out was performed. and the soft tissues infiltrated with 1% lidocaine local anesthetic. Utilizing ultrasound guidance, a 21 gauge Accu Stick needle was advanced from a posterolateral approach into a left side lower pole calyx, and a small amount of contrast was injected under fluoroscopy to confirm positioning. Over a mandril wire, exchange was made to a non-vascular access set, through which was advanced an 0.035 wire. Following serial dilation, an 8.5 Spanish multipurpose nephrostomy catheter was placed with tip pigtailed within the renal pelvis. Position was confirmed with antegrade nephrostogram. The catheter was secured in place and connected to gravity drainage. Utilizing ultrasound guidance, a 21 gauge Accu Stick needle was advanced from a posterolateral approach into a right side lower pole calyx, and a small amount of contrast was injected under fluoroscopy to confirm positioning. Over a mandril wire, exchange was made to a non-vascular access set, through which was advanced an 0.035 wire. Following serial dilation, an 8.5 Spanish multipurpose nephrostomy catheter was placed with tip pigtailed within the renal pelvis. Position was confirmed with antegrade nephrostogram. The catheter was secured in place and connected to gravity drainage. A sterile dressing was applied. No immediate complication was identified. DAP 57 FLUOROSCOPY TIME: 2.3 minutes. CONTRAST USED: 20 mL Omni 300. SEDATION: Dr. Mahamed Aguirre was personally responsible for the administration of moderate sedation during the procedure performed, including the use of an independent trained observer who had no other duties during the procedure. The drugs utilized were IV fentanyl and versed (see nursing log for details). The total time of supervision by the attending physician was approximately 40 minutes. FINDINGS: Moderately dilated left > right renal collecting system with contrast obstructing in the distal ureter. New 8.5 tristanian nephrostomy tube via a posterior lower pole calyceal access, with loop coiled within the renal pelvis. IMPRESSION: Moderately dilated left > right renal collecting system with contrast obstructing in the distal ureter, status post placement of 8.5 tristanian bilateral percutaneous nephrostomy catheter. PLAN: Routine catheter care.
--- NOTE | 2025-11-25 17:43 | DVHPNRES ---
Progress Note Date Seen: Nov 25, 2025 Resident Creating Document: NICHOLE HAYWOOD RESIDENT Medical Necessity Reason Pt with a Central, PICC or Fol: No Subjective Review of Systems Patient is 70 years old female with a history of ovarian carcinoma, status post surgical intervention, status post chemotherapy last chemotherapy was April last chemotherapy was in April 2025, history of asthma, history of kidney stone came with a complaint of pain. As per patient he has been having right flank pain for last 2 days, gradual in onset, constant, 10/10, no aggravating or relieving factor. Pain was associated nausea and some watery vomiting, no blood. Patient denied any fever, diarrhea, acute joint redness or swelling. Patient was diagnosed with ovarian cancer in 2019 and undergoing surgery. She required a second surgery in 2019 to "finish it off." She mentions that tumors were found underneath her left rib and on her right side that were not initially detected. As per patient doctor told her that she had metastasis on PET scan. She used to live [place]. She lab workup revealed mild anemia with a hemoglobin 10.8, iron 30, ferritin 336. Use positive for opiates. CT abdomen and pelvis revealed- Mesenteric and retroperitoneal lymphadenopathy with at least 2 focal estella conglomerates as described. Findings are concerning for lymphoma or metastatic disease. Chronic appearing moderate bilateral hydronephrosis likely related to mechanical obstruction secondary to retroperitoneal masses. Nonobstructing right nephrolithiasis. Diverticulosis coli without CT evidence of acute diverticulitis. Retained colorectal stool. PMH-ovarian carcinoma, status post surgical intervention, status post chemotherapy, history of asthma, history of kidney stone PSH- - Cancer surgery in 2019, Follow-up cancer surgery in 2019 to complete the initial procedure Allergy- lives with son, Personal History/ Social History- denies smoking/alcoholism/drug abuse. lives with son, ROS Cardiovascular- deny acute chest pain or shortness of breath or cough or palpitation Respiratory denies cough or short of breath or wheezing Musculoskeletal-denies acute joint swelling or tenderness or redness Neurological- denies acute dysarthria, dysphagia, change in vision Psychiatry- denies depression or SI or HI Skin- denies acute rash or purpura Patient was seen today at bedside Labs and chart reviewed Status post bilateral nephrostomy tube placement Spoke to Urology over phone, recommended to do discharge patient once the urine is clear Patient with reddish urine in nephrostomy tube Objective vital signs Vital Sign Date Time Temp Pulse Resp B/P (MAP) Pulse Ox O2 Delivery O2 Flow Rate FiO2 11/25/25 16:40 98.2 89 16 94/59 (71) 94 98.2 11/25/25 08:30 Room Air* 0 21 Total Intake and Output 11/24/25 11/24/25 11/25/25 15:00 23:00 07:00 Intake Total 50 ml 405 ml 0 ml Output Total 100 ml 380 ml Balance -50 ml 25 ml 0 ml medications Current Medications Medications Dose Ordered Sig/Chidi Route Start Time Stop Time Status Last Admin Dose Admin Sodium Chloride 10 ml Q8HR IV 11/20/25 22:00 11/25/25 06:05 10 ML Ondansetron HCl 4 mg Q4HP PRN IV 11/20/25 17:45 11/25/25 11:48 4 MG Enoxaparin Sodium 30 mg DAILY SC 11/21/25 10:00 11/24/25 11:06 30 MG Acetaminophen 650 mg Q6HP PRN PO 11/20/25 17:45 Nitroglycerin 0.4 mg Q5MINP PRN SL 11/20/25 17:45 Morphine Sulfate 2 mg Q30M PRN IV 11/20/25 17:45 Tamsulosin HCl 0.4 mg QPM PO 11/20/25 18:00 11/24/25 17:54 0.4 MG Ceftriaxone Sodium 50 ml @ 100 mls/hr DAILY@09 IV 11/22/25 08:15 11/25/25 09:00 100 MLS/HR Lactulose 30 ml DAILY PRN PO 11/22/25 08:45 11/23/25 11:44 30 ML Hydromorphone HCl 0.25 mg Q4HPRN PRN IV 11/24/25 12:00 11/24/25 13:01 0.25 MG Lorazepam 0.25 mg Q12HP PRN IV 11/24/25 12:00 Acetaminophen/ Hydrocodone Bitart 1 tab Q4HP PRN PO 11/24/25 12:15 11/25/25 15:15 1 TAB Examination General examination-awake, alert HEENT- PEERLA, no acute nasal discharge Cardiovascular- S1-S2 audible, rate and rhythm regular, no murmur Respiratory- CTAB, no wheeze or rhonchi Gastrointestinal-nontender, bowel sound+. Nondistended Musculoskeletal-no acute joint swelling or tenderness or redness Lower extremity- no leg edema Neurological- cranial nerves intact, no acute dysarthria or dysphagia Psychiatry- denies depression or SI or HI Skin- no acute rash or purpura laboratory and microbiology Laboratory Tests 11/24/25 05:57 Test 11/24/25 05:57 Range/Units Serum Glucose 105 74-106 mg/dL Microbiology Date/Time Source Procedure Growth Status 11/21/25 09:49 Blood Blood Culture - Preliminary NO GROWTH AFTER 72 HOURS OF INCUBATION. Resulted 11/20/25 05:20 Voided Urine Urine Culture - Final Escherichia coli Complete Problem List/Assessment/Plan Problem List/Assessment/Plan Assessment and plan- # sepsis likely due acute complicated UTI # bilateral hydronephrosis likely due to mechanical obstruction # status post bilateral nephrostomy tube placement # nephrolithiasis -blood culture- no growth so far - urine culture- E. Coli -continue IV antibiotic Ceftriaxone -Urology recommended for IR consult for bilateral PCN placement and CT-guided biopsy of the retroperitoneal mass. Cystoscopy TBA on outpatient basis. -Status post bilateral nephrostomy tube placement Spoke to Urology over phone, recommended to do charge patient once the urine is clear # history of ovarian cancer, status post surgical intervention, status post chemotherapy # abdominal lymphadenopathy likely metastasis of ovarian cancer -patient was advised to follow up with the oncologist/PCP as outpatient # history of asthma, no exacerbation -nebulization PRN # anemia of chronic disease -monitor CBC Ordered a stool for occult blood test # diverticulosis -avoid dehydration and constipation Goals of care, Code status full code ; discussed with >15 minutes PUD prophylaxis: Pantoprazole DVT prophylaxis: Lovenox Plan discussed with Dr. Welch , nursing staff, Total time spent on patient evaluation, chart review, assessment and plan, discussion discussion >35 minutes Plan discussed with: Patient, Other (RN) My Orders My Orders Orders - NICHOLE HAYWOOD RESIDENT Procedure Category Date Status Time Npo After Midnight MAGUI 11/24/25 In Process 18:07 Electrocardigram EKG 11/24/25 Logged 18:46 * Windscreen Fitter CONS 11/25/25 Transmitted Consult Dietary Evaluation Review Comments: Monitor PO intake, lab values, weight trend, and I/O Expected Outcomes/Goals: Intake to meet >75% estimated needs FU 3-5 days Visit Coding STANDARD RES Billing Provider: EDGAR BARROW MD Date of Service if different f: Nov 25, 2025 Common Visit Codes: 92178-[id number] INP/OBS CARE(HIGH) NICHOLE HAYWOOD RESIDENT Nov 25, 2025 17:43
[2025-11-26 01:00] VITALS: BP 90/55; PULSE 87; RESP 16; TEMP 98.7; O2SAT 95
[2025-11-26 05:00] VITALS: BP 95/57; PULSE 83; RESP 16; TEMP 98.7; O2SAT 95
[2025-11-26 07:29] LABS: Hematocrit 27.0 % (36.0-46.0); Hemoglobin 8.8 g/dL (12.2-16.2); Mean Corpuscular Hemoglobin 29.4 pg (28.0-32.0); Mean Corpuscular Volume 90.3 fL (80.0-100.0); Nucleated Red Blood Cells % 0.1 %
[2025-11-26 07:40] LABS: Anion Gap 7 (5-15); Carbon Dioxide 29 mmol/L (20-31); Chloride 102 mmol/L (98-107); Potassium 4.1 mmol/L (3.5-5.1); Sodium 138 mmol/L (136-145)
[2025-11-26 07:46] LABS: BUN/Creatinine Ratio 9.2 (10.0-20.0); Blood Urea Nitrogen 13 mg/dL (9-23); Glucose 88 mg/dL (74-106)
[2025-11-26 07:47] LABS: Calcium 8.6 mg/dL (8.7-10.4)
[2025-11-26] MEDS: SODIUM CHLORIDE 0.9% 1,000 ML IV ONE (08:00)
[2025-11-26 09:00] VITALS: BP 97/63; PULSE 91; RESP 20; TEMP 98.2; O2SAT 92
[2025-11-26] MEDS ORDERED: CEPH250C PO (13:37)
--- NOTE | 2025-11-26 13:43 | DVHDSRES ---
Discharge Summary Date of Admission Resident Creating Document: NICHOLE HAYWOOD RESIDENT Nov 20, 2025 at 17:34 Date of Discharge: Nov 26, 2025 Admitting Diagnosis Sepsis due to acute complicated UTI Labs/Diagnostic Data: Laboratory Results Test 11/26/25 05:38 11/25/25 05:11 11/23/25 04:56 11/21/25 20:35 White Blood Count 4.0 10^3/uL (4.4-10.8) Red Blood Count 2.99 10^6/uL (4.0-5.20) Hemoglobin 8.8 g/dL (12.2-16.2) Hematocrit 27.0 % (36.0-46.0) Mean Corpuscular Volume 90.3 fL (80.0-100.0) Mean Corpuscular Hemoglobin 29.4 pg (28.0-32.0) Mean Corpuscular Hemoglobin Concent 32.5 g/dL (32.0-36.0) Red Cell Distribution Width 15.1 % (11.8-14.3) Platelet Count 201 10^3/uL (140-450) Mean Platelet Volume 7.1 fL (6.9-10.8) Neutrophils (%) (Auto) 65.7 % (37.0-80.0) Lymphocytes (%) (Auto) 21.0 % (10.0-50.0) Monocytes (%) (Auto) 9.5 % (0.0-12.0) Eosinophils (%) (Auto) 3.4 % (0.0-7.0) Basophils (%) (Auto) 0.4 % (0.0-2.0) Neutrophils # (Auto) 2.6 10 ^3/uL (1.6-8.6) Lymphocytes # (Auto) 0.8 10 ^3/uL (0.4-5.4) Monocytes # (Auto) 0.4 10 ^3/uL (0-1.3) Eosinophils # (Auto) 0.1 10 ^3/uL (0-0.8) Basophils # (Auto) 0 10 ^3/uL (0-0.2) Nucleated Red Blood Cells 0.1 % Sodium Level 138 mmol/L (136-145) Potassium Level 4.1 mmol/L (3.5-5.1) Chloride Level 102 mmol/L (98-107) Carbon Dioxide Level 29 mmol/L (20-31) Anion Gap 7 (5-15) Blood Urea Nitrogen 13 mg/dL (9-23) Creatinine 1.41 mg/dL (0.550-1.02) Glomerular Filtration Rate Calc 40 mL/min (>90) BUN/Creatinine Ratio 9.2 (10.0-20.0) Serum Glucose 88 mg/dL (74-106) Calcium Level 8.6 mg/dL (8.7-10.4) Prothrombin Time 17.6 sec (9.3-11.8) Prothrombin Time INR 1.76 (0.9-1.15) Activated Partial Thromboplast Time 28.5 SEC (24.5-34.5) Magnesium Level 1.8 mg/dL (1.6-2.6) Stool Occult Blood Negative (Negative) Stool Occult Blood Sample #3 (Negative) Test 11/21/25 05:38 11/20/25 17:48 11/20/25 05:20 11/20/25 01:56 Reticulocyte Count (auto) 2.66 % (0.5-1.5) Hemoglobin A1c < 3.8 % A1C (<5.7) Iron Level 30 ug/dL (50-170) Total Iron Binding Capacity 199 ug/dL (250-425) Percent Iron Saturation 15.1 % (15-50) Ferritin 336.5 ng/mL (10-291) Total Bilirubin 0.5 mg/dL (0.2-1.0) Aspartate Amino Transferase (AST) 30 U/L (13-40) Alanine Aminotransferase (ALT) 15 U/L (7-40) Alkaline Phosphatase 82 U/L (46-116) Total Protein 6.4 g/dL (5.7-8.2) Albumin 3.5 g/dL (3.2-4.8) Lactic Acid Level 1.0 mmol/L (0.4-2.0) Direct Bilirubin 0.2 mg/dL (<0.3) C-Reactive Protein High Sensitivity 7.43 mg/dL (<1.0) B-Type Natriuretic Peptide 89.65 pg/mL (0-100) Thyroid Stimulating Hormone (TSH) 1.44 uIU/mL (0.55-4.78) Urine Color Colorless (Yellow) Urine Clarity Turbid (Clear) Urine pH 5.5 (5.0-9.0) Urine Specific [place] 1.021 (1.001-1.035) Urine Protein Trace (Negative) Urine Ketones 2+ (Negative) Urine Blood 3+ /uL (Negative) Urine Nitrite Negative (Negative) Urine Bilirubin Negative (Negative) Urine Urobilinogen Normal mg/dL (Negative) Urine Leukocyte Esterase 2+ /uL (Negative) Urine RBC 912 /hpf (0 - 4) Urine Microscopic WBC 174 /HPF (0-5) Urine Squamous Epithelial Cells Few /hpf (<5) Urine Bacteria Many /hpf (None Seen) Urine Mucus Few (None Seen) Urine Glucose Normal mg/dL (Normal) Urine Opiates Screen Pos (NEGATIVE) Urine Fentanyl Screen Neg (NEGATIVE) Urine Barbiturates Screen Neg (NEGATIVE) Urine Phencyclidine Screen Neg (NEGATIVE) Urine Amphetamines Screen Neg (NEGATIVE) Urine Benzodiazepines Screen Neg (NEGATIVE) Urine Cocaine Screen Neg (NEGATIVE) Urine Cannabinoids Screen Neg (NEGATIVE) Lipase 31 U/L (12-53) Other Laboratory Tests 11/26/25 05:38 Brief Hx & Hospital Course: Patient is 70 years old female with a history of ovarian carcinoma, status post surgical intervention, status post chemotherapy last chemotherapy was April last chemotherapy was in April 2025, history of asthma, history of kidney stone came with a complaint of pain. As per patient he has been having right flank pain for last 2 days, gradual in onset, constant, 10/10, no aggravating or relieving factor. Pain was associated nausea and some watery vomiting, no blood. Patient denied any fever, diarrhea, acute joint redness or swelling. Patient was diagnosed with ovarian cancer in 2019 and undergoing surgery. She required a second surgery in 2019 to "finish it off." She mentions that tumors were found underneath her left rib and on her right side that were not initially detected. As per patient doctor told her that she had metastasis on PET scan. She used to live [place]. She lab workup revealed mild anemia with a hemoglobin 10.8, iron 30, ferritin 336. Use positive for opiates. CT abdomen and pelvis revealed- Mesenteric and retroperitoneal lymphadenopathy with at least 2 focal estella conglomerates as described. Findings are concerning for lymphoma or metastatic disease. Chronic appearing moderate bilateral hydronephrosis likely related to mechanical obstruction secondary to retroperitoneal masses. Nonobstructing right nephrolithiasis. Diverticulosis coli without CT evidence of acute diverticulitis. Retained colorectal stool. Hospital course-during hospital course patient was seen by Urology, recommended for IR consult for possible bilateral nephrostomy tube placement, patient had bilateral nephrostomy tube placement by IR on 11/25/25. Patient was also treated with ceftriaxone for UTI. Uterine culture grew E coli. Sensitive to ceftriaxone. Blood culture no growth. Patient's symptoms improved. Spoke to Urology over phone, cleared for discharge. Patient is being discharged home with the home health for wound care. Patient was advised to follow up with the clinic/PCP/Urology/Oncology for further evaluation and care. Patient was hemodynamically stable on discharge. All questions answered. General examination-awake, alert HEENT- PEERLA, no acute nasal discharge Cardiovascular- S1-S2 audible, rate and rhythm regular, no murmur Respiratory- CTAB, no wheeze or rhonchi Gastrointestinal-nontender, bowel sound+. Nondistended Musculoskeletal-no acute joint swelling or tenderness or redness Lower extremity- no leg edema Renal system-bilateral nephrostomy tube has been placed Neurological- cranial nerves intact, no acute dysarthria or dysphagia Psychiatry- denies depression or SI or HI Skin- no acute rash or purpura Assessment # sepsis likely due acute complicated UTI # bilateral hydronephrosis likely due to mechanical obstruction # status post bilateral nephrostomy tube placement # nephrolithiasis # history of ovarian cancer, status post surgical intervention, status post chemotherapy # history of asthma, no exacerbation # anemia of chronic disease # diverticulosis Plan Keflex 250 mg q.6h for 7 days Please follow up with your PCP Please follow up at [facility] clinic as per schedule Please follow up with the Urology as per schedule Please follow up with the oncologist for further evaluation and care of ovarian cancer with metastasis Plan of care discussed with Dr. Welch. Operations or Procedures [address] [address] Ph: [phone] DIAGNOSTIC IMAGING Diagnostic Imaging Report : [id number] Signed PATIENT: ISA VELEZ ACCT: [id number] UNIT: [id number] : 1955 LOC: ER ROOM / BED: / AGE / SEX: 70 / F ADM STATUS: REG ER SERVICE 0141 ORDERING PHYSICIAN: MANUEL DAUGHERTY PROCEDURE(s): ABPL - CT AB PEL WO CON-NO ORAL OR IV REASON: Rt flank pain ORDER NUMBER(s): [id number], ACCESSION NUMBER(s): [id number] EXAM: CT CT AB PEL WO CON-NO ORAL OR IV History: Rt flank pain Comparison Study: None TECHNIQUE: Multidetector spiral CT of the abdomen was performed from lung bases to pubic symphysis. Imaging was performed without IV contrast. Axial, coronal and sagittal multiplanar reformats were obtained from the axial data set by the technologist. Radiation Dose : 1. Abdomen/Pelvis: CTDIvol 5.1 mGy, DLP 271.69 mGy*cm. FINDINGS: Evaluation of solid organs is limited due to lack of intravenous contrast use. Lung Bases: No acute or significant lung base finding. Mild bibasilar atelectasis. Normal heart size. No pleural or pericardial effusion. Liver: The liver is normal in size. 1.6 cm left hepatic lobe cyst. No focal lesions. Gallbladder and Biliary Tree: Unremarkable Spleen: Unremarkable Pancreas: The pancreas is grossly normal in appearance. Adrenal Glands: Unremarkable Kidneys: Chronic appearing Moderate bilateral hydronephrosis likely related to mechanical obstruction secondary to retroperitoneal masses. Nonobstructing right pelvocaliceal calculi measure up to 3 mm in diameter. 2.3 cm left superior pole renal cortical cyst. Bladder: Grossly unremarkable for degree of distention. Bowel: The stomach is grossly normal in appearance. Retained colorectal stool. Diverticulosis coli without CT evidence of acute diverticulitis. Small bowel and colon are otherwise normal in caliber and distribution. The appendix is normal. Ascites: Absent Lymphadenopathy: Multiple abnormally enlarged mesenteric and retroperitoneal lymph nodes poorly delineated in the absence of intravenous contrast with at least 2 focal estella conglomerate including a right aortocaval mass measuring 5.2 x 4.8 cm and a left common iliac estella conglomerate measuring up to 8.0 x 5.0 cm. Abdominal Wall and Mesentery: Unremarkable. Vasculature: The visualized abdominal aorta is normal in size and caliber. Atherosclerotic vascular calcifications. Evaluation of abdominal and pelvic vessels is limited due to lack of intravenous contrast. Pelvic Organs: Unremarkable status post hysterectomy. Musculoskeletal: No aggressive focal bony lesions, acute fractures or dislocation. IMPRESSION: 1. Mesenteric and retroperitoneal lymphadenopathy with at least 2 focal estella conglomerates as described. Findings are concerning for lymphoma or metastatic disease. 2. Chronic appearing moderate bilateral hydronephrosis likely related to mechanical obstruction secondary to retroperitoneal masses. 3. Nonobstructing right nephrolithiasis. 4. Diverticulosis coli without CT evidence of acute diverticulitis. 5. Retained colorectal stool. Radiation optimization: All CT scans at this facility use at least one of these dose optimization techniques: automated exposure control mA and/or kV adjustment per patient size (includes targeted exams where dose is matched to clinical indication) or iterative reconstruction. ATED BY: NIKHIL MEDINA MD DICTATED DATE/TIME: 11/20/25334 SIGNED BY: NIKHIL MEDINA MD SIGNED DATE/TIME: 11/20/25334 CC: [place] [id number] Ph: [phone] DIAGNOSTIC IMAGING Diagnostic Imaging Report : [id number] Signed PATIENT: ISA VELEZ ACCT: [id number] UNIT: [id number] : 1955 LOC: [facility] ROOM / BED: [address] [place] [address] AGE / SEX: 70 / F ADM STATUS: ADM IN SERVICE 9 ORDERING PHYSICIAN: RAMONA ROSADO RESIDENT PROCEDURE(s): BLDR - BLADDER REASON: eval for ureteral obstruction and any compressing mass ORDER NUMBER(s): [id number], ACCESSION NUMBER(s): [id number] CLINICAL HISTORY: eval for ureteral obstruction and any compressing mass TECHNIQUE: Sonographic imaging of the bladder was performed. COMPARISON: None FINDINGS: The bladder is partially contracted, measuring 2.3 x 6.4 x 4.6 cm for volume of 42 mL. There is 7 mm bladder wall thickness. There is a 5 mm intraluminal echogenic structure. There are solid appearing lesions adjacent to the bladder superiorly. IMPRESSION: 7 mm bladder wall thickness, most likely related to underdistention. 7 mm linear echogenic structure within the bladder, which could represent a stone. Complex masslike lesion superior to the bladder. Please refer to CT report performed yesterday for better details. ATED BY: KEVON FERRO MD DICTATED DATE/TIME: 11/21/25 1146 SIGNED BY: KEVON FERRO MD SIGNED DATE/TIME: 11/21/25 1146 CC: [place] [id number] Ph: [phone] DIAGNOSTIC IMAGING Diagnostic Imaging Report : [id number] Signed PATIENT: ISA VELEZ ACCT: [id number] UNIT: [id number] : 1955 LOC: [facility] ROOM / BED: [address] [place] [address] AGE / SEX: 70 / F ADM STATUS: ADM IN SERVICE 1028 ORDERING PHYSICIAN: NICHOLE HAYWOOD PROCEDURE(s): BLDVT - BiLat Lower DVT REASON: Rule out DVT ORDER NUMBER(s): [id number], ACCESSION NUMBER(s): [id number] CLINICAL HISTORY: Rule out DVT TECHNIQUE: Color and duplex doppler imagine of the bilateral lower extremity veins was performed. Vessel compression and augmentation if possible was also performed. COMPARISON: None FINDINGS: Right Lower Extremity: Right common femoral vein: Normal compressibility and flow. Right superficial femoral vein: Normal compressibility and flow. Right popliteal vein: Normal compressibility and flow. Left Lower Extremity: Left common femoral vein: Normal compressibility and flow. Left superficial femoral vein: Normal compressibility and flow. Left popliteal vein: Normal compressibility and flow. IMPRESSION: NO SONOGRAPHIC EVIDENCE FOR DEEP VENOUS THROMBOSIS IN THE BILATERAL LOWER EXTREMITY VEINS. ATED BY: KEVON FERRO MD DICTATED DATE/TIME: 11/21/25 1114 SIGNED BY: KEVON FERRO MD SIGNED DATE/TIME: 11/21/25 1114 CC: [place] [id number] Ph: [phone] DIAGNOSTIC IMAGING Diagnostic Imaging Report : [id number] Signed PATIENT: ISA VELEZ ACCT: [id number] UNIT: [id number] : 1955 LOC: [facility] ROOM / BED: [facility] A AGE / SEX: 70 / F ADM STATUS: ADM IN SERVICE 0913 ORDERING PHYSICIAN: ION AGUIRRE MD PROCEDURE(s): KIDUS - KIDNEY REASON: evaulate for hydronephrosis, check for uretheral jets ORDER NUMBER(s): [id number], ACCESSION NUMBER(s): [id number] US KIDNEY HISTORY: evaulate for hydronephrosis, check for uretheral jets COMPARISON: US BLADDER on DOS: 11/21/25 TECHNIQUE: Transverse and longitudinal grayscale and color doppler images were obtained of the kidneys and bladder. FINDINGS: Right kidney: Size: 9.3 cm Cortical thickness: Normal Echogenicity: Normal Stones: None Masses: None Hydronephrosis: Yes Ureters: Not well visualized. Other: None Left kidney: Size: 12.0 cm Cortical thickness: Normal Echogenicity: Normal Stones: None Masses: None Hydronephrosis: Yes Ureters: Not well visualized. Other: None Bladder: Contracted Other: None. IMPRESSION: Bilateral hydronephrosis, Left> right. Ureteral jets not visualized bilaterally. ATED BY: ION AGUIRRE MD DICTATED DATE/TIME: 11/22/25 1020 SIGNED BY: ION AGUIRRE MD SIGNED DATE/TIME: 11/22/25 1020 CC: [place] [id number] Ph: [phone] DIAGNOSTIC IMAGING Diagnostic Imaging Report : [id number] Signed PATIENT: ISA VELEZ ACCT: [id number] UNIT: [id number] : 1955 LOC: [facility] ROOM / BED: [address] [place] [address] AGE / SEX: 70 / F ADM STATUS: ADM IN SERVICE 174 ORDERING PHYSICIAN: NICHOLE HAYWOOD RESIDENT PROCEDURE(s): CXRP - CHEST PORTABLE REASON: SCHEDULED SURGERY 11/25 ORDER NUMBER(s): [id number], ACCESSION NUMBER(s): [id number] CHEST RADIOGRAPH Indication: SCHEDULED SURGERY 11/25 Technique: Single frontal view of the chest was obtained COMPARISON: None FINDINGS: Lines and Tubes: Right chest port in satisfactory position. Lungs: Clear Pleura: No effusion.No pneumothorax. Cardiomediastinal contours: Cardiomegaly. Bones: Unremarkable IMPRESSION: No acute cardiopulmonary disease. ATED BY: CHATO WEBER MD DICTATED DATE/TIME: 11/22/252107 SIGNED BY: CHATO WEBER MD SIGNED DATE/TIME: 11/22/252107 CC: [address] [id number] Ph: [phone] DIAGNOSTIC IMAGING Diagnostic Imaging Report : [id number] Signed PATIENT: ISA VELEZ ACCT: [id number] UNIT: [id number] : 1955 LOC: [facility] ROOM / BED: [facility] / A AGE / SEX: 70 / F ADM STATUS: ADM IN SERVICE 4 ORDERING PHYSICIAN: ION AGUIRRE MD PROCEDURE(s): THOUS - US GUIDANCE FOR NEEDLE PLACEME REASON: NEPHROTUBE ORDER NUMBER(s): [id number], ACCESSION NUMBER(s): [id number] PERCUTANEOUS NEPHROSTOMY, HISTORY: Bilateral nephrostomy tube placement due to hydronephrosis from an obstructing mass. PROCEDURE: Informed consent was obtained. The patient was placed on the fluoroscopic table in a prone position and IV sedation administered. The right/left flank was prepped with chlorhexidine which was allowed to dry and draped in the usual sterile fashion. Time out was performed. and the soft tissues infiltrated with 1% lidocaine local anesthetic. Utilizing ultrasound guidance, a 21 gauge Accu Stick needle was advanced from a posterolateral approach into a left side lower pole calyx, and a small amount of contrast was injected under fluoroscopy to confirm positioning. Over a mandril wire, exchange was made to a non-vascular access set, through which was advanced an 0.035 wire. Following serial dilation, an 8.5 Scottish multipurpose nephrostomy catheter was placed with tip pigtailed within the renal pelvis. Position was confirmed with antegrade nephrostogram. The catheter was secured in place and connected to gravity drainage. Utilizing ultrasound guidance, a 21 gauge Accu Stick needle was advanced from a posterolateral approach into a right side lower pole calyx, and a small amount of contrast was injected under fluoroscopy to confirm positioning. Over a mandril wire, exchange was made to a non-vascular access set, through which was advanced an 0.035 wire. Following serial dilation, an 8.5 Scottish multipurpose nephrostomy catheter was placed with tip pigtailed within the renal pelvis. Position was confirmed with antegrade nephrostogram. The catheter was secured in place and connected to gravity drainage. A sterile dressing was applied. No immediate complication was identified. DAP 57 FLUOROSCOPY TIME: 2.3 minutes. CONTRAST USED: 20 mL Omni 300. SEDATION: Dr. Mahamed Aguirre was personally responsible for the administration of moderate sedation during the procedure performed, including the use of an independent trained observer who had no other duties during the procedure. The drugs utilized were IV fentanyl and versed (see nursing log for details). The total time of supervision by the attending physician was approximately 40 minutes. FINDINGS: Moderately dilated left > right renal collecting system with contrast obstructing in the distal ureter. New 8.5 tongan nephrostomy tube via a posterior lower pole calyceal access, with loop coiled within the renal pelvis. IMPRESSION: Moderately dilated left > right renal collecting system with contrast obstructing in the distal ureter, status post placement of 8.5 tongan bilateral percutaneous nephrostomy catheter. PLAN: Routine catheter care. ATED BY: ION AGUIRRE MD DICTATED DATE/TIME: 11/25/251209 SIGNED BY: ION AGUIRRE MD SIGNED DATE/TIME: 11/25/251209 CC: [place] [id number] Ph: [phone] DIAGNOSTIC IMAGING Diagnostic Imaging Report : [id number] Signed PATIENT: ISA VELEZ ACCT: [id number] UNIT: [id number] : 1955 LOC: [facility] ROOM / BED: [address] [place] [address] AGE / SEX: 70 / F ADM STATUS: ADM IN SERVICE 4 ORDERING PHYSICIAN: ION AGUIRRE MD PROCEDURE(s): PERNEPH - PERCUTANEOUS NEPHROSTOMY REASON: BILATERAL NEPHROTUBE ORDER NUMBER(s): [id number], ACCESSION NUMBER(s): [id number] PERCUTANEOUS NEPHROSTOMY, HISTORY: Bilateral nephrostomy tube placement due to hydronephrosis from an obstructing mass. PROCEDURE: Informed consent was obtained. The patient was placed on the fluoroscopic table in a prone position and IV sedation administered. The right/left flank was prepped with chlorhexidine which was allowed to dry and draped in the usual sterile fashion. Time out was performed. and the soft tissues infiltrated with 1% lidocaine local anesthetic. Utilizing ultrasound guidance, a 21 gauge Accu Stick needle was advanced from a posterolateral approach into a left side lower pole calyx, and a small amount of contrast was injected under fluoroscopy to confirm positioning. Over a mandril wire, exchange was made to a non-vascular access set, through which was advanced an 0.035 wire. Following serial dilation, an 8.5 Scottish multipurpose nephrostomy catheter was placed with tip pigtailed within the renal pelvis. Position was confirmed with antegrade nephrostogram. The catheter was secured in place and connected to gravity drainage. Utilizing ultrasound guidance, a 21 gauge Accu Stick needle was advanced from a posterolateral approach into a right side lower pole calyx, and a small amount of contrast was injected under fluoroscopy to confirm positioning. Over a mandril wire, exchange was made to a non-vascular access set, through which was advanced an 0.035 wire. Following serial dilation, an 8.5 Scottish multipurpose nephrostomy catheter was placed with tip pigtailed within the renal pelvis. Position was confirmed with antegrade nephrostogram. The catheter was secured in place and connected to gravity drainage. A sterile dressing was applied. No immediate complication was identified. DAP 57 FLUOROSCOPY TIME: 2.3 minutes. CONTRAST USED: 20 mL Omni 300. SEDATION: Dr. Mahamed Aguirre was personally responsible for the administration of moderate sedation during the procedure performed, including the use of an independent trained observer who had no other duties during the procedure. The drugs utilized were IV fentanyl and versed (see nursing log for details). The total time of supervision by the attending physician was approximately 40 minutes. FINDINGS: Moderately dilated left > right renal collecting system with contrast obstructing in the distal ureter. New 8.5 tongan nephrostomy tube via a posterior lower pole calyceal access, with loop coiled within the renal pelvis. IMPRESSION: Moderately dilated left > right renal collecting system with contrast obstructing in the distal ureter, status post placement of 8.5 tongan bilateral percutaneous nephrostomy catheter. PLAN: Routine catheter care. ATED BY: ION AGUIRRE MD DICTATED DATE/TIME: 11/25/25 1210 SIGNED BY: ION AGUIRRE MD SIGNED DATE/TIME: 11/25/25 1210 CC: Condition at Discharge: Stable Final Diagnosis/Problems List # sepsis likely due acute complicated UTI # bilateral hydronephrosis likely due to mechanical obstruction # status post bilateral nephrostomy tube placement # nephrolithiasis # history of ovarian cancer, status post surgical intervention, status post chemotherapy # history of asthma, no exacerbation # anemia of chronic disease # diverticulosis Discharge Disposition: Home with Health Services Discharge Instruct/Medications Diet: Renal Activity: Light activity Follow Up/Referral: DC clinic PCP Urology Oncology Medications: As per EMR Scheduled Cephalexin (Keflex Capsule), 1 CAP PO QID Naproxen Sodium (Aleve), 220 MG PO Q4HPRN, (Reported) Scheduled PRN Tramadol Hcl (Tramadol Hcl), 50 MG PO Q12HP PRN for PAIN SCALE 7 THRU 10, (Reported) Tramadol Hcl (Tramadol Hcl), 50 MG PO QIDPRN PRN Discharge Statement: "Patient was advised to return to the ER or call 911 if any headaches, dizziness, shortness of breath, chest pain, abdominal pain, bleeding, fevers, or worsening of medical condition. Patient was counseled about treatment plan, medications, possible side effects, patientverbalized understanding. All questions were answered to the best of my ability. This discharge took greater then 30 minutes in planning, reviewing documentation, counseling the patient, and discussing with other team members." ASSESSMENT ASSESSMENT Assessment # sepsis likely due acute complicated UTI # bilateral hydronephrosis likely due to mechanical obstruction # nephrolithiasis Visit Coding STANDARD RES Billing Provider: EDGAR BARROW MD Date of Service if different f: Nov 26, 2025 Common Visit Codes: 05644-SPT/OBS DISCH DAY >30min NICHOLE HAYWOOD RESIDENT Nov 26, 2025 13:42
--- NOTE | 2025-11-26 14:04 | DVHPN2 ---
Progress Note - Dictate Date Seen: Nov 26, 2025 Medical Necessity Reason Pt with a Central, PICC or Fol: No Subjective bilateral PCN - right clear yellow, left sanguinous. left PCN was flushed give 1 liter NS outpt f/u vital signs Vital Sign Date Time Temp Pulse Resp B/P (MAP) Pulse Ox O2 Delivery O2 Flow Rate FiO2 11/26/25 09:00 98.2 91 20 97/63 (74) 92 98.2 11/26/25 08:00 Room Air* 0 21 Total Intake and Output 11/25/25 11/25/25 11/26/25 15:00 23:00 07:00 Intake Total 50 ml 218 ml 940 ml Output Total 280 ml 625 ml Balance 50 ml -62 ml 315 ml medications Current Medications Medications Dose Ordered Sig/Chidi Route Start Time Stop Time Status Last Admin Dose Admin Sodium Chloride 10 ml Q8HR IV 11/20/25 22:00 11/26/25 06:00 10 ML Ondansetron HCl 4 mg Q4HP PRN IV 11/20/25 17:45 11/26/25 12:24 4 MG Enoxaparin Sodium 30 mg DAILY SC 11/21/25 10:00 11/26/25 10:14 30 MG Acetaminophen 650 mg Q6HP PRN PO 11/20/25 17:45 Nitroglycerin 0.4 mg Q5MINP PRN SL 11/20/25 17:45 Morphine Sulfate 2 mg Q30M PRN IV 11/20/25 17:45 Tamsulosin HCl 0.4 mg QPM PO 11/20/25 18:00 11/25/25 18:42 0.4 MG Ceftriaxone Sodium 50 ml @ 100 mls/hr DAILY@09 IV 11/22/25 08:15 11/26/25 09:21 100 MLS/HR Lactulose 30 ml DAILY PRN PO 11/22/25 08:45 11/23/25 11:44 30 ML Hydromorphone HCl 0.25 mg Q4HPRN PRN IV 11/24/25 12:00 11/24/25 13:01 0.25 MG Lorazepam 0.25 mg Q12HP PRN IV 11/24/25 12:00 Acetaminophen/ Hydrocodone Bitart 1 tab Q4HP PRN PO 11/24/25 12:15 11/26/25 12:24 1 TAB laboratory and microbiology Laboratory Tests 11/26/25 05:38 Test 11/26/25 05:38 Range/Units Serum Glucose 88 74-106 mg/dL Dietary Evaluation Review Comments: Monitor PO intake, lab values, weight trend, and I/O Expected Outcomes/Goals: Intake to meet >75% estimated needs FU 3-5 days Plan discussed with: Patient, Other Total Time (mins): 19 PITO SAEED NP Nov 26, 2025 14:04
[2025-11-26] MEDS ORDERED: TRAM50TA2 PO (15:06)
[2025-11-26 16:42] VITALS: TEMP 36.8
[2025-11-26 17:00] VITALS: BP 98/64; PULSE 91; RESP 18; O2SAT 95
== END 2025-11-26 18:35 | disposition home health service (06) | DRG 871 ==
LOC: EDBD 00:57 → ER 00:57 → OVERFLOW 17:34 → WEST WING 22:03
PROVIDERS: ADMIT Student in an Organized Health Care Education/Training Program; ATTEND Student in an Organized Health Care Education/Training Program
PROC: 0T9430Z Drainage of Left Kidney Pelvis with Drainage Device, Percutaneous Approach (ICD-10-PCS; principal; 2025-11-25)
PROC: 0T9330Z Drainage of Right Kidney Pelvis with Drainage Device, Percutaneous Approach (ICD-10-PCS; 2025-11-25)
PROC: BT131ZZ Fluoroscopy of Bilateral Kidneys using Low Osmolar Contrast (ICD-10-PCS; 2025-11-25)
DX: A41.51 Sepsis due to Escherichia coli [E. coli] (principal); N17.0 Acute kidney failure with tubular necrosis; N13.6 Pyonephrosis; D63.8 Anemia in other chronic diseases classified elsewhere; J45.909 Unspecified asthma, uncomplicated; R59.0 Localized enlarged lymph nodes; K57.30 Diverticulosis of large intestine without perforation or abscess without bleeding; Z87.442 Personal history of urinary calculi; Z85.43 Personal history of malignant neoplasm of ovary; Z92.21 Personal history of antineoplastic chemotherapy; Z83.3 Family history of diabetes mellitus; Z80.0 Family history of malignant neoplasm of digestive organs; Z82.0 Family history of epilepsy and other diseases of the nervous system; Z90.710 Acquired absence of both cervix and uterus
CPT/HCPCS: 36415; 50430; 50432; 71045; 74176; 74425; 76775; 76857; 76942; 80048; 80053; 80076; 80307; 81001; 82270; 82728; 83036; 83540; 83550; 83605; 83690; 83735; 83880; 84443; 85025; 85045; 85610; 85730; 86141; 86850; 86900; 86901; 87040; 87086; 87088; 87186; 93005; 93970; 97110; 97116; 97163; 97530; 99152; G0378; J1885; J2250; J2405; J2543; Q9967